=== PATIENT | male | born 1935 | race Caucasian/White ===

== ENCOUNTER 2016-11-12 14:48 | Outpatient (CLI) | payer MEDICARE, OTHER | END 2016-11-12 14:49 | disposition short-term general hospital (02) | LOC: EMS 14:48 | PROVIDERS: ATTEND Surgery | DX: R07.9 Chest pain, unspecified (principal) | CPT/HCPCS: A0425; A0427 ==

== ENCOUNTER 2018-05-20 15:14 | Outpatient (CLI) | payer MEDICARE, OTHER | END 2018-05-20 15:15 | disposition critical access hospital (66) | LOC: EMS 15:14 | PROVIDERS: ATTEND Surgery | DX: R51 Headache (principal); W18.30XA Fall on same level, unspecified, initial encounter; Y93.01 Activity, walking, marching and hiking; Y92.138 Other place on military base as the place of occurrence of the external cause | CPT/HCPCS: A0425; A0427 ==

== ENCOUNTER 2018-05-20 15:36 | Emergency (ER) | payer MEDICARE, OTHER ==
[2018-05-20 16:19] LABS: BASOPHILS # (AUTO) 0.1 10^3/uL (0.0-0.1); BASOPHILS % (AUTO) 1.1 %; EOSINOPHILS # (AUTO) 0.3 10^3/uL (0.0-0.7); EOSINOPHILS % (AUTO) 6.2 %; HGB - HEMOGLOBIN 11.3 g/dL (14.0-18.0); LYMPHOCYTES # (AUTO) 1.1 10^3/uL (1.5-3.5); LYMPHOCYTES % (AUTO) 20.5 %; MEAN CORPUSCULAR HEMOGLOBIN 32.1 pg (27.0-31.0); MEAN CORPUSCULAR HGB CONC 34.2 g/dL (32.0-36.0); MEAN PLATELET VOLUME 7.4 fL (7.4-11.4); MONOCYTES # (AUTO) 0.5 10^3/uL (0.0-1.0); NEUTROPHILS # (AUTO) 3.3 10^3/uL (1.5-6.6); NEUTROPHILS % (AUTO) 63.2 %; PLT - PLATELET COUNT 226 10^3/uL (130-450); RED BLOOD COUNT 3.53 10^6/uL (4.70-6.10); RED CELL DISTRIBUTION WIDTH 13.2 % (12.0-15.0); WHITE BLOOD COUNT 5.2 x10^3/uL (4.8-10.8)
--- NOTE | 2018-05-20 16:23 | ED Physician Documentation ---
History of Present Illness - Stated complaint Stated Complaint: FALL - Chief complaint Chief Complaint: Trauma Hd/Nk - History obtained from History obtained from: Patient, Family, EMS - History of Present Illness Timing: Today Pain level max: 0 Pain level now: 0 Improved by: nothing Worsened by: nothing - Additonal information Additional information: 82 year old male, with presumed dementia per , was walking behind his when she heard him fall. no LOC. has abrasions to the head. is on eliquis for afib. Patient cannot give a pain scale. Review of Systems Unable to obtain: Dementia Constitutional: denies: Fever GI: denies: Vomiting PD PAST MEDICAL HISTORY - Past Medical History Cardiovascular: Hypertension, High cholesterol, Coronary artery disease, Angina, [place], Atrial fibrillation, Other Respiratory: Asthma Endocrine/Autoimmune: Type 2 diabetes GI: None : None HEENT: Chronic vision loss Psych: None Musculoskeletal: Osteoarthritis, Gout Derm: Other - Past Surgical History Past Surgical History: Yes General: Appendectomy, Colonoscopy, Other Cardiovascular: Cardiac catheterization, Angioplasty HEENT: Other - Present Medications Home Medications: Ambulatory Orders Medication Instructions Recorded Confirmed Amiodarone HCl 150 mg PO DAILY 01/31/14 05/20/18 Aspirin [Aspir 81] 81 mg PO DAILY 01/31/14 05/20/18 Isosorbide Mononitrate [Isosorbide 30 mg PO DAILY 01/31/14 05/20/18 Mononitrate ER] Levothyroxine [Synthroid] 25 mcg PO QPM 01/31/14 05/20/18 Rosuvastatin Calcium [Crestor] 20 mg PO QPM 01/31/14 05/20/18 Apixaban [Eliquis] 2.5 mbq PO BID 05/20/18 05/20/18 - Allergies Allergies/Adverse Reactions: Allergies Allergy/AdvReac Type Severity Reaction Status Date / Time metformin Allergy Intermediate Unknown Verified 05/20/18 15:46 colchicine Allergy Unknown Verified 05/20/18 15:46 atorvastatin calcium * AdvReac Intermediate Cramps Verified 05/20/18 15:46 [From Lipitor] niacin AdvReac Intermediate Flushed Verified 05/20/18 15:46 - Social History Does the pt smoke?: No Smoking Status: Never smoker Does the pt drink ETOH?: No Does the pt have substance abuse?: No - Immunizations Immunizations are current?: Yes Immunizations: TDAP current <10years - POLST Patient has POLST: Yes PD ED PE NORMAL - Vitals Vital signs reviewed: Yes - General General: No acute distress, Other (alert, oriented to person and place) - HEENT HEENT: PERRL, EOMI, Ears normal, Moist mucous membranes, Pharynx benign, Other (abrasion to forehead) - Neck Neck: Supple, no meningeal sign - Cardiac Cardiac: RRR - Respiratory Respiratory: No respiratory distress, Clear bilaterally - Abdomen Abdomen: Soft, Non tender, Non distended - Back Back: Other (diffusely TTP over the spine. no stepoff or deformity.) - Derm Derm: Warm and dry - Extremities Extremities: Normal ROM s pain - Neuro Neuro: No motor deficit, No sensory deficit Eye Opening: Spontaneous Motor: Obeys Commands Verbal: Confused GCS Score: 14 Results - Vitals Vitals: Vital Signs - 24 hr 05/20/18 05/20/18 05/20/18 15:38 17:44 20:02 Temperature 36.4 C L Heart Rate 53 L 49 L 78 Respiratory 16 14 16 Rate Blood Pressure 115/110 H 148/63 H 132/78 H O2 Saturation 99 98 100 Oxygen O2 Source Room air - Labs Labs: Laboratory Tests 05/20/18 05/20/18 15:43 15:43 WBC 5.2 RBC 3.53 L Hgb 11.3 L Hct 33.2 L MCV 94.0 MCH 32.1 H MCHC 34.2 RDW 13.2 Plt Count 226 MPV 7.4 Neut # (Auto) 3.3 Lymph # (Auto) 1.1 L [place] # (Auto) 0.5 Eos # (Auto) 0.3 Baso # (Auto) 0.1 Absolute Nucleated RBC 0.00 Nucleated RBC % 0.0 Sodium 137 Potassium 4.7 Chloride 104 Carbon Dioxide 23 Anion Gap 10.0 BUN 39 H Creatinine 1.9 H Estimated GFR (MDRD) 34 L Glucose 109 H Calcium 9.4 Total Bilirubin 0.8 AST 28 ALT 16 Alkaline Phosphatase 79 Total Protein 7.3 Albumin 4.3 Globulin 3.0 Albumin/Globulin Ratio 1.4 Lipase 44 - Rads (name of study) head CT Radiology: Prelim report reviewed, EMP read contemporaneously, See rad report (No acute abnormality) c-spine CT Radiology: Prelim report reviewed, EMP read contemporaneously, See rad report (No acute abnormality) T spine xray Radiology: Prelim report reviewed, EMP read contemporaneously, See rad report (No acute abnormality) L spine xray Radiology: Prelim report reviewed, EMP read contemporaneously, See rad report (No acute abnormality) R knee xray Radiology: Prelim report reviewed, EMP read contemporaneously, See rad report (No acute abnormality) R shoulder xray Radiology: Prelim report reviewed, EMP read contemporaneously, See rad report (No acute abnormality) PD MEDICAL DECISION MAKING - ED course Complexity details: reviewed results, re-evaluated patient, considered differential, d/w patient, d/w family ED course: 82-year-old male presents to the emergency department with after a ground-level fall. He developed bruising on the right shoulder and pain to the right knee after the initial x-rays were taken, these x-rays are negative as well. Negative head CT. He is at his baseline mental status per the . He is well-appearing, nontoxic. Ambulating well. Declines pain medications here. Patient and family counseled regarding signs and symptoms for which I believe and urgent re-evaluation would be necessary. Patient with good understanding of and agreement to plan and is comfortable going home at this time This document was made in part using voice recognition software. While efforts are made to proofread this document, sound alike and grammatical errors may occur. Departure - Departure Disposition: 01 Home, Self Care Clinical Impression: Fall Qualifiers: Encounter type: initial encounter Qualified Code(s): W19.XXXA - Unspecified fall, initial encounter Head injury Qualifiers: Encounter type: initial encounter Qualified Code(s): S09.90XA - Unspecified injury of head, initial encounter Contusion of right shoulder Qualifiers: Encounter type: initial encounter Qualified Code(s): S40.011A - Contusion of right shoulder, initial encounter Abrasion of knee, right Qualifiers: Encounter type: initial encounter Qualified Code(s): S80.211A - Abrasion, right knee, initial encounter Condition: Good Instructions: ED Contusion Soft Tissue, ED Head Injury Closed Follow-Up: FREDERIC LOPEZ MD [Primary Care Provider] - Within 3 Days Comments: Return if he worsens. You may use Tylenol at home for pain. His x-rays and CT scans are without acute abnormality tonight Discharge Date/Time: 05/20/18 20:05
[2018-05-20 16:25] LABS: ALBUMIN 4.3 g/dL (3.2-5.5); ALBUMIN/GLOBULIN RATIO 1.4 (1.0-2.2); BILIRUBIN,TOTAL 0.8 mg/dL (0.2-1.0); CALCIUM 9.4 mg/dL (8.5-10.3); CREATININE 1.9 mg/dL (0.6-1.2); TOTAL PROTEIN 7.3 g/dL (6.7-8.2)
--- NOTE | 2018-05-20 17:10 | CT Report ---
Reason: head injury, pt on eliquis Procedure Date: 05/20/2018 Accession Number: [id number] / [id number] Procedure: CT - HEAD WO CPT Code: FULL RESULT: EXAM: CT HEAD EXAM DATE: 05/20/2018 04:35 PM. CLINICAL HISTORY: Head injury, pt on eliquis. COMPARISON: CT cervical spine performed concurrently.. TECHNIQUE: Multiaxial CT images were obtained from the foramen magnum to the vertex. Reformats: Sagittal and coronal. IV contrast: None. In accordance with CT protocol optimization, one or more of the following dose reduction techniques were utilized for this exam: automated exposure control, adjustment of mA and/or KV based on patient size, or use of iterative reconstructive technique. FINDINGS: Parenchyma: Mild patchy hypodensity in the bilateral cerebral periventricular greater than subcortical white matter consistent with chronic small vessel ischemic change. No high density lesions. No mass-effect. Thornton-white differentiation is intact. Extraaxial Spaces: Mild generalized sulcal prominence. No subdural or epidural collections identified. Ventricles: Mild generalized ventriculomegaly. Sinuses and Orbits: Bilateral cataract surgery. Small mucous retention cyst posteriorly in the left maxillary sinus antrum. Otherwise, the visualized paranasal sinuses are clear as are mastoids and middle ears. Bones: No evidence of fracture or calvarial defect. Other: No scalp contusion is identified. Moderate calcification in bilateral cavernous internal carotid arteries. IMPRESSION: 1. No intracranial hemorrhage. 2. Mild patchy chronic small vessel ischemic change in the bilateral cerebral white matter. No current CT evidence of acute CVA. 3. Mild diffuse cerebral volume loss. RADIA
--- NOTE | 2018-05-20 17:13 | CT Report ---
Reason: fall, neck injury Procedure Date: 05/20/2018 Accession Number: [id number] / [id number] Procedure: CT - CERVICAL SPINE WO CPT Code: FULL RESULT: EXAM: CT CERVICAL SPINE WITHOUT CONTRAST DATE: 05/20/2018 04:35 PM. HISTORY: Fall, neck injury. COMPARISONS: CT head performed concurrently C SPINE 02/07/2008 9:50 AM. MRI cervical spine 02/07/2008. TECHNIQUE: Thin-section axial images were acquired of the cervical spine without contrast. Post-processing: Coronal and sagittal reformats. Other: None. In accordance with CT protocol optimization, one or more of the following dose reduction techniques were utilized for this exam: automated exposure control, adjustment of mA and/or KV based on patient size, or use of iterative reconstructive technique. FINDINGS: Alignment: Minimal 2 mm spondylotic retrolisthesis C4 on C5. Bones: No fracture or focal bone lesion from the craniocervical junction through T2. Interspace Levels/Facets: Moderate osteoarthritis of the pre-dens interval. Partial bridging osteophyte formation anteriorly at C2-C3. Disk height loss and endplate osteophyte formation indicating degenerative disk disease which is moderate at C4-C5 through C6-C7. There is solid bony facet fusion right greater than left at C2-C3. There is moderate bilateral C3-C4 facet osteoarthritis. There is moderate right C7-T1 facet osteoarthritis. There is moderate bilateral C3-C4, mild right and moderate left C4-C5, moderate right and mild left C5-C6 bony foraminal stenosis. Musculature: Normal. No fatty atrophy. Other: The paravertebral and prevertebral soft tissues are unremarkable. Moderate calcified plaque at the bilateral carotid bifurcations. The lung apices are clear. IMPRESSION: 1. No fracture from the craniocervical junction through T2. 2. Moderate multilevel degenerative change as described above. RADIA
--- NOTE | 2018-05-20 17:21 | XRAY Report ---
Reason: fall, back pain Procedure Date: 05/20/2018 Accession Number: [id number] / [id number] Procedure: XR - Lumbar Spine 2 View CPT Code: FULL RESULT: EXAM: LUMBOSACRAL SPINE RADIOGRAPHY EXAM DATE: 05/20/2018 04:55 PM. CLINICAL HISTORY: Fall, back pain. COMPARISONS: THORACIC SPINE 2 VIEW 05/20/2018 4:35 PM. TECHNIQUE: 2 views. FINDINGS: Alignment: Minimal right convex lumbar spine curvature. No subluxation. Bones: Five [id number] lumbar vertebral bodies are present. No fractures or bone lesions. Disks: Mild anterior endplate osteophyte formation L2-L3 through L4-L5. Disk heights are maintained. Facets: No significant degenerative changes. Sacroiliac Joints: Unremarkable. Soft Tissues: Moderate aortoiliac atherosclerotic calcification. The visualized bowel gas pattern is normal. IMPRESSION: No fracture or subluxation is identified in the lumbar spine. RADIA
--- NOTE | 2018-05-20 17:21 | XRAY Report ---
Reason: fall, back pain Procedure Date: 05/20/2018 Accession Number: [id number] / [id number] Procedure: XR - Thoracic Spine 2 View CPT Code: FULL RESULT: EXAM: THORACIC SPINE RADIOGRAPHY EXAM DATE: 05/20/2018 04:35 PM. CLINICAL HISTORY: Fall, back pain. COMPARISON: CERVICAL SPINE W/O 05/20/2018 4:30 PM LUMBAR SPINE 2 VIEW 05/20/2018 4:35 PM. TECHNIQUE: 2 views. FINDINGS: Alignment: Subtle left convex lower thoracic spine curvature. No subluxation. Bones: No fractures or bone lesions. Disks: Mild anterior flowing osteophyte formation of the lower thoracic spine consistent with mild diffuse idiopathic skeletal hyperostosis. Disk heights are maintained. Soft Tissues: Moderate aortic arch calcification. The visualized lungs and cardiomediastinal silhouette are normal. IMPRESSION: No fracture or subluxation is identified in the thoracic spine. RADIA
--- NOTE | 2018-05-20 19:20 | XRAY Report ---
Reason: fall, R shoulder pain Procedure Date: 05/20/2018 Accession Number: [id number] / [id number] Procedure: XR - Shoulder 3 View RT CPT Code: FULL RESULT: EXAM: RIGHT SHOULDER RADIOGRAPHY EXAM DATE: 05/20/2018 06:43 PM. CLINICAL HISTORY: Fall, R shoulder pain. COMPARISON: XR CHEST PA AND LAT 09/09/2007 12:11 AM. TECHNIQUE: 3 views. FINDINGS: Bones: Normal. No fracture or bone lesion. Joints: The glenohumeral and acromioclavicular joints are normal. Soft tissues: The visualized hemithorax is unremarkable. No soft tissue swelling. IMPRESSION: Normal shoulder radiography. RADIA
--- NOTE | 2018-05-20 19:21 | XRAY Report ---
Reason: fall, R knee pain Procedure Date: 05/20/2018 Accession Number: [id number] / [id number] Procedure: XR - Knee 3 View RT CPT Code: FULL RESULT: EXAM: RIGHT KNEE RADIOGRAPHY EXAM DATE: 05/20/2018 06:43 PM. CLINICAL HISTORY: Fall, R knee pain. COMPARISON: None. TECHNIQUE: 3 views. FINDINGS: Bones: Normal. No fractures or bone lesions. Joints: Normal. No effusion. No subluxations. Soft Tissues: No juno soft tissue swelling. Mild atherosclerotic calcification. IMPRESSION: No fracture or joint effusion. RADIA
[2018-05-20 20:03] VITALS: BP 132/78
== END 2018-05-20 20:05 | disposition home or self-care (01) ==
LOC: EDUNIT# → ED 15:36
DX: S09.90XA Unspecified injury of head, initial encounter (principal); S00.81XA Abrasion of other part of head, initial encounter; S40.011A Contusion of right shoulder, initial encounter; S80.211A Abrasion, right knee, initial encounter; W18.30XA Fall on same level, unspecified, initial encounter; Y93.01 Activity, walking, marching and hiking; Y92.481 Parking lot as the place of occurrence of the external cause; I48.91 Unspecified atrial fibrillation; I48.92 Unspecified atrial flutter; I44.2 Atrioventricular block, complete; Z79.01 Long term (current) use of anticoagulants; E11.9 Type 2 diabetes mellitus without complications; I25.2 Old myocardial infarction; E78.00 Pure hypercholesterolemia, unspecified; F03.90 Unspecified dementia, unspecified severity, without behavioral disturbance, psychotic disturbance, mood disturbance, and anxiety; I25.10 Atherosclerotic heart disease of native coronary artery without angina pectoris; I10 Essential (primary) hypertension
CPT/HCPCS: 36415; 70450; 72070; 72100; 72125; 80053; 83690; 85025; 93005; 99284

== ENCOUNTER 2018-08-30 15:41 | Outpatient (CLI) | payer MEDICARE, OTHER | END 2018-08-30 15:42 | disposition critical access hospital (66) | LOC: EMS 15:41 | PROVIDERS: ATTEND Surgery | DX: R41.82 Altered mental status, unspecified (principal); R45.83 Excessive crying of child, adolescent or adult | CPT/HCPCS: A0425; A0429 ==

== ENCOUNTER 2018-08-30 15:44 | Emergency (ER) | payer MEDICARE, OTHER ==
--- NOTE | 2018-08-30 16:05 | ED Physician Documentation ---
PD HPI ALTERED MENTAL STATUS - Stated complaint Stated Complaint: GLF - Chief complaint Chief Complaint: Neuro - History obtained from History obtained from: Patient, Family ( via phone) - History of Present Illness Timing - onset: Today Timing - duration: Minutes Timing - details: Abrupt onset (patient slid out of his recliner and was confused, per couldn't follow commands, more confused than normal) Associated symptoms: No: Fever, Headache, Stiff neck, Dyspnea, Cough, NVD, Urinary sx, General weakness, Focal weakness, Seizure activity, Syncope Contributing factors: Anticoagulated. No: New medication, Recent injury, Substance abuse Basline status: Ambulatory, Other (normally ambulates without a walker, and follows commands, feeds himself). 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 (none) Similar symptoms before: Diagnosis (dementia but this is worse than normal) Recently seen: Not recently seen - Treatment prior to arrival Treatment prior to arrival: none Review of Systems Unable to obtain: Dementia Constitutional: denies: Fever Cardiac: denies: Chest pain / pressure Respiratory: denies: Dyspnea GI: denies: Abdominal Pain Musculoskeletal: denies: Neck pain, Back pain Neurologic: reports: Confused PD PAST MEDICAL HISTORY - Past Medical History Past Medical History: Yes Cardiovascular: Hypertension, High cholesterol, Coronary artery disease, Angina, [place], Atrial fibrillation, Other Respiratory: Asthma Endocrine/Autoimmune: Type 2 diabetes GI: None : None HEENT: Chronic vision loss Psych: None Musculoskeletal: Osteoarthritis, Gout Derm: Other - Past Surgical History Past Surgical History: Yes General: Appendectomy, Colonoscopy, Other Cardiovascular: Cardiac catheterization, Angioplasty HEENT: Other - Present Medications Home Medications: Ambulatory Orders Medication Instructions Recorded Confirmed Aspirin [Aspir 81] 81 mg PO DAILY 01/31/14 05/20/18 Isosorbide Mononitrate [Isosorbide 30 mg PO DAILY 01/31/14 05/20/18 Mononitrate ER] Levothyroxine [Synthroid] 25 mcg PO QPM 01/31/14 05/20/18 RX: Amiodarone HCl 150 mg PO DAILY 01/31/14 05/20/18 Rosuvastatin Calcium [Crestor] 20 mg PO QPM 01/31/14 05/20/18 Apixaban [Eliquis] 2.5 mbq PO BID 05/20/18 05/20/18 - Allergies Allergies/Adverse Reactions: Allergies Allergy/AdvReac Type Severity Reaction Status Date / Time metformin Allergy Intermediate Unknown Verified 05/20/18 15:46 colchicine Allergy Unknown Verified 05/20/18 15:46 atorvastatin calcium * AdvReac Intermediate Cramps Verified 05/20/18 15:46 [From Lipitor] niacin AdvReac Intermediate Flushed Verified 05/20/18 15:46 - Social History Does the pt smoke?: No Smoking Status: Never smoker Does the pt drink ETOH?: No Does the pt have substance abuse?: No - Immunizations Immunizations are current?: Yes Immunizations: TDAP current <10years - POLST Patient has POLST: Yes PD ED PE NORMAL - Vitals Vital signs reviewed: Yes (sinus bradycardia ) - General General: No acute distress, Other (awake alert and oriented to self) - HEENT HEENT: Atraumatic, PERRL, EOMI, Ears normal, Moist mucous membranes, Pharynx benign - Neck Neck: Supple, no meningeal sign, No bony TTP, No JVD - Cardiac Cardiac: RRR, No murmur, No gallop, No rub - Respiratory Respiratory: No respiratory distress, Clear bilaterally - Abdomen Abdomen: Soft, Non tender, Non distended - Male Male : Deferred - Rectal Rectal: Deferred - Back Back: No spinal TTP - Derm Derm: Normal color, Warm and dry, No rash - Extremities Extremities: No deformity, No tenderness to palpate, Normal ROM s pain, No edema - 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, No motor deficit, No sensory deficit, Normal speech, Other (oriented to self ) Eye Opening: Spontaneous Motor: Obeys Commands (obeys most commands) Verbal: Confused GCS Score: 14 - Psych Psych: Normal mood, Normal affect Results - Vitals Vitals: Oxygen O2 Source Room air - EKG (time done) No standard instances Rate: Rate (enter#) (45), [place] Rhythm: Sinus bradycardia [place]: Normal Intervals: Normal NE, QRS normal, Other (normal QT) Ischemia: Normal ST segments Other comments: Other comments (no STEMI, sinus bradycardia ) Computer interpretation: Agree with computer - Labs Labs: Laboratory Tests 08/30/18 08/30/18 08/30/18 16:03 16:03 17:01 WBC 5.0 RBC 3.52 L Hgb 11.1 L Hct 33.4 L MCV 95.0 H MCH 31.5 H MCHC 33.2 RDW 13.9 Plt Count 176 MPV 7.1 L Neut # (Auto) 3.1 Lymph # (Auto) 0.9 L [place] # (Auto) 0.5 Eos # (Auto) 0.4 Baso # (Auto) 0.0 Absolute Nucleated RBC 0.00 Nucleated RBC % 0.0 Sodium 140 Potassium 4.4 Chloride 107 Carbon Dioxide 23 Anion Gap 10.0 BUN 39 H Creatinine 1.8 H Estimated GFR (MDRD) 36 L Glucose 104 H Calcium 9.2 Urine Color YELLOW Urine Clarity CLEAR Urine pH 5.5 Ur Specific [place] 1.010 Urine Protein NEGATIVE Urine Glucose (UA) NEGATIVE Urine Ketones NEGATIVE Urine Occult Blood NEGATIVE Urine Nitrite NEGATIVE Urine Bilirubin NEGATIVE Urine Urobilinogen 0.2 (NORMAL) Ur Leukocyte Esterase NEGATIVE Ur Microscopic Review NOT INDICATED Urine Culture Comments NOT INDICATED kidney function at baseline. UA negative. CBC stable - Rads (name of study) No standard instances Radiology: Final report received (CT head negative for acute injury or disease) PD MEDICAL DECISION MAKING - ED course Complexity details: re-evaluated patient, considered differential, d/w patient, d/w family ED course: ddx- head injury, stroke, uti, electrolyte abnormality, dehydration, infection, worsening dementia 82 y/o M slid out of his chair today and briefly seemed more confused than normal. Now returned to baseline, more with it. No significant injuries noted on exam Negative head CT. Negative labs and UA. Pt appears to be close to baseline per family . No focal abnormalities here on exam or labs. Stable for outpt f/u. Departure - Departure Disposition: 01 Home, Self Care Clinical Impression: Dementia Qualifiers: Dementia type: unspecified type Dementia behavioral disturbance: without behavioral disturbance Qualified Code(s): F03.90 - Unspecified dementia without behavioral disturbance Fall Qualifiers: Encounter type: initial encounter Qualified Code(s): W19.XXXA - Unspecified fall, initial encounter Condition: Stable Record reviewed to determine appropriate education?: Yes Instructions: ED Dementia Caregiver Support Follow-Up: FREDERIC LOPEZ MD [Primary Care Provider] - Comments: Your labs and CT scan today were normal. You had no significant injuries from your fall. You should follow up with your doctor regarding further needs for your dementia and consider some additional assistance. Discharge Date/Time: 08/30/18 17:45
[2018-08-30 16:24] LABS: BASOPHILS % (AUTO) 0.5 %; EOSINOPHILS # (AUTO) 0.4 10^3/uL (0.0-0.7); HGB - HEMOGLOBIN 11.1 g/dL (14.0-18.0); LYMPHOCYTES # (AUTO) 0.9 10^3/uL (1.5-3.5); LYMPHOCYTES % (AUTO) 18.4 %; MEAN CORPUSCULAR HEMOGLOBIN 31.5 pg (27.0-31.0); MEAN CORPUSCULAR HGB CONC 33.2 g/dL (32.0-36.0); MEAN PLATELET VOLUME 7.1 fL (7.4-11.4); MONOCYTES # (AUTO) 0.5 10^3/uL (0.0-1.0); MONOCYTES % (AUTO) 10.4 %; NEUTROPHILS # (AUTO) 3.1 10^3/uL (1.5-6.6); NEUTROPHILS % (AUTO) 61.7 %; PLT - PLATELET COUNT 176 10^3/uL (130-450); RED BLOOD COUNT 3.52 10^6/uL (4.70-6.10); RED CELL DISTRIBUTION WIDTH 13.9 % (12.0-15.0)
[2018-08-30 16:39] LABS: CALCIUM 9.2 mg/dL (8.5-10.3); CREATININE 1.8 mg/dL (0.6-1.2)
[2018-08-30] MEDS ORDERED: SODIUM CHLORIDE 0.9% 1,000 ML IV ONE (16:43)
--- NOTE | 2018-08-30 16:44 | CT Report ---
Reason: confusion, fall on eloquis Procedure Date: 08/30/2018 Accession Number: [id number] / [id number] Procedure: CT - HEAD WO CPT Code: FULL RESULT: EXAM: CT HEAD EXAM DATE: 08/30/2018 04:34 PM. CLINICAL HISTORY: Confusion, fall on eloquis. COMPARISON: HEAD W/O 05/20/2018 4:30 PM. TECHNIQUE: Multiaxial CT images were obtained from the foramen magnum to the vertex. Reformats: Sagittal and coronal. IV contrast: None. In accordance with CT protocol optimization, one or more of the following dose reduction techniques were utilized for this exam: automated exposure control, adjustment of mA and/or KV based on patient size, or use of iterative reconstructive technique. FINDINGS: Parenchyma: No intraparenchymal hemorrhage. No evidence of mass, midline shift, or CT findings of infarction. Thornton-white differentiation is distinct. Extraaxial Spaces: Normal for age. No subdural or epidural collections identified. Ventricles: Normal in size and position. Sinuses and Orbits: Mucosal thickening is seen involving left maxillary sinus. Rest of the imaged paranasal sinuses, orbits, and mastoids show no significant abnormality. Bones: No evidence of fracture or calvarial defect. Other: None. IMPRESSION: No acute traumatic intracranial abnormality. Mucosal thickening in left maxillary sinus. RADIA
[2018-08-30 16:58] VITALS: BP 128/90
[2018-08-30 17:05] LABS: BILIRUBIN,URINE NEGATIVE (NEGATIVE); GLUCOSE, URINE (UA) NEGATIVE (NEGATIVE); KETONES,URINE (UA) NEGATIVE (NEGATIVE); LEUKOCYTE ESTERASE, URINE NEGATIVE (NEGATIVE); NITRITE,URINE NEGATIVE (NEGATIVE); OCCULT BLOOD,URINE NEGATIVE (NEGATIVE); PH,URINE 5.5 PH (5.0-7.5); PROTEIN,URINE NEGATIVE (NEGATIVE); UROBILINOGEN,URINE 0.2 (NORMAL) E.U./dL (NORMAL)
[2018-08-30 17:06] LABS: CLARITY,URINE CLEAR (CLEAR)
== END 2018-08-30 17:45 | disposition home or self-care (01) ==
LOC: EDUNIT# → ED 15:44
DX: F03.90 Unspecified dementia, unspecified severity, without behavioral disturbance, psychotic disturbance, mood disturbance, and anxiety (principal); I10 Essential (primary) hypertension; I48.91 Unspecified atrial fibrillation; I25.119 Atherosclerotic heart disease of native coronary artery with unspecified angina pectoris; E11.9 Type 2 diabetes mellitus without complications; J45.909 Unspecified asthma, uncomplicated; H54.7 Unspecified visual loss; Z79.01 Long term (current) use of anticoagulants; Z79.82 Long term (current) use of aspirin; I25.2 Old myocardial infarction; Z98.61 Coronary angioplasty status
CPT/HCPCS: 36415; 70450; 80048; 81001; 81003; 85025; 87086; 93005; 99283

== ENCOUNTER 2018-11-04 18:52 | Outpatient (CLI) | payer MEDICARE, OTHER | END 2018-11-04 18:53 | disposition critical access hospital (66) | LOC: EMS 18:52 | PROVIDERS: ATTEND Surgery | DX: R07.9 Chest pain, unspecified (principal) | CPT/HCPCS: A0425; A0427 ==

== ENCOUNTER 2018-11-04 19:14 | Emergency (ER) | payer MEDICARE, OTHER ==
[2018-11-04 20:30] LABS: BASOPHILS % (AUTO) 0.8 %; EOSINOPHILS # (AUTO) 0.2 10^3/uL (0.0-0.7); EOSINOPHILS % (AUTO) 6.3 %; HGB - HEMOGLOBIN 10.9 g/dL (14.0-18.0); LYMPHOCYTES # (AUTO) 0.9 10^3/uL (1.5-3.5); LYMPHOCYTES % (AUTO) 23.9 %; MEAN CORPUSCULAR HEMOGLOBIN 32.4 pg (27.0-31.0); MEAN CORPUSCULAR HGB CONC 32.8 g/dL (32.0-36.0); MEAN CORPUSCULAR VOLUME 98.8 fL (80.0-94.0); MEAN PLATELET VOLUME 9.1 fL (7.4-11.4); MONOCYTES # (AUTO) 0.3 10^3/uL (0.0-1.0); MONOCYTES % (AUTO) 8.7 %; NEUTROPHILS # (AUTO) 2.3 10^3/uL (1.5-6.6); PLT - PLATELET COUNT 154 10^3/uL (130-450); RED BLOOD COUNT 3.36 10^6/uL (4.70-6.10); RED CELL DISTRIBUTION WIDTH 12.7 % (12.0-15.0); WHITE BLOOD COUNT 3.8 x10^3/uL (4.8-10.8)
[2018-11-04 20:41] LABS: ALBUMIN/GLOBULIN RATIO 1.5 (1.0-2.2); BILIRUBIN,TOTAL 0.2 mg/dL (0.2-1.0); CALCIUM 9.4 mg/dL (8.5-10.3); TOTAL PROTEIN 6.7 g/dL (6.7-8.2)
--- NOTE | 2018-11-04 21:22 | ED Physician Documentation ---
History of Present Illness - Stated complaint Stated Complaint: ABD Px - Chief complaint Chief Complaint: Abd Pain - Additonal information Additional information: This is an 83-year-old male with a history of dementia, who presents with a rec urrence of his intermittent abdominal pain. His at bedside states that he has had intermittent episodes of abdominal pain for over a year. These will come on strongly and will be located in the right upper quadrant or the left upper quadrant. The cause him to double over, and he usually is brought by ambulance to the emergency department. His work-ups have been unrevealing. He did get a cholecystectomy, this is not seem to help. He was started on ranitidine, and this also has not helped. He has been evaluated by his loading checker and cardiac cause has been ruled out. He developed the current episode today while his was in a store, and when she came outside he was being loaded up into an ambulance. He states that the pain lasted several minutes, and then subsided completely. Currently has no pain whatsoever. The pain was located near the epigastric or right upper quadrant region. He denies any shortness of breath, no dysuria, at this time he has no complaints whatsoev er. Review of Systems Constitutional: denies: Fever Eyes: denies: Loss of vision Cardiac: denies: Chest pain / pressure Respiratory: denies: Dyspnea GI: reports: Abdominal Pain. denies: Vomiting Neurologic: denies: Generalized weakness PD PAST MEDICAL HISTORY - Past Medical History Cardiovascular: Hypertension, High cholesterol, Coronary artery disease, Angina, [place], Atrial fibrillation, Other Respiratory: Asthma Endocrine/Autoimmune: Type 2 diabetes GI: None : None HEENT: Chronic vision loss Psych: None Musculoskeletal: Osteoarthritis, Gout Derm: Other - Past Surgical History Past Surgical History: Yes General: Appendectomy, Colonoscopy, Other Cardiovascular: Cardiac catheterization, Angioplasty HEENT: Other - Present Medications Home Medications: Ambulatory Orders Medication Instructions Recorded Confirmed Amiodarone HCl 150 mg PO DAILY 01/31/14 05/20/18 Aspirin [Aspir 81] 81 mg PO DAILY 01/31/14 05/20/18 Isosorbide Mononitrate [Isosorbide 30 mg PO DAILY 01/31/14 05/20/18 Mononitrate ER] Levothyroxine [Synthroid] 25 mcg PO QPM 01/31/14 05/20/18 Rosuvastatin Calcium [Crestor] 20 mg PO QPM 01/31/14 05/20/18 Apixaban [Eliquis] 2.5 mbq PO BID 05/20/18 05/20/18 - Allergies Allergies/Adverse Reactions: Allergies Allergy/AdvReac Type Severity Reaction Status Date / Time metformin Allergy Intermediate Unknown Verified 05/20/18 15:46 colchicine Allergy Unknown Verified 05/20/18 15:46 atorvastatin calcium * AdvReac Intermediate Cramps Verified 05/20/18 15:46 [From Lipitor] niacin AdvReac Intermediate Flushed Verified 05/20/18 15:46 - Social History Does the pt smoke?: No Smoking Status: Never smoker Does the pt drink ETOH?: No Does the pt have substance abuse?: No - Immunizations Immunizations are current?: Yes Immunizations: TDAP current <10years - POLST Patient has POLST: Yes PD ED PE NORMAL - Vitals Vital signs reviewed: Yes - General General: No acute distress, Other (Tangential speech, apparent poor memory) - HEENT HEENT: PERRL - Neck Neck: Supple, no meningeal sign - Cardiac Cardiac: RRR, No murmur - Respiratory Respiratory: Clear bilaterally - Abdomen Abdomen: Normal bowel sounds, Soft, Non tender, Non distended - Derm Derm: Warm and dry - Extremities Extremities: No deformity - Neuro Neuro: brand executive 2-12 intact, No motor deficit, No sensory deficit, Other (Answers questions and has normal superficial conversation, becomes confused and tangential when discussing matters in depth) - Psych Psych: Normal mood, Normal affect Results - Vitals Vitals: Oxygen O2 Source Room air - EKG (time done) 19:22 Other comments: Other comments (Rate 50, rhythm sinus bradycardia, No ST depression or elevation, no abnormal T wave inversions. QTC 458) - Labs Labs: Laboratory Tests 11/04/18 11/04/18 11/04/18 20:23 20:23 20:23 WBC 3.8 L RBC 3.36 L Hgb 10.9 L Hct 33.2 L MCV 98.8 H MCH 32.4 H MCHC 32.8 RDW 12.7 Plt Count 154 MPV 9.1 Neut # (Auto) 2.3 Lymph # (Auto) 0.9 L [place] # (Auto) 0.3 Eos # (Auto) 0.2 Baso # (Auto) 0.0 Absolute Nucleated RBC 0.00 Nucleated RBC % 0.0 Sodium 144 Potassium 4.5 Chloride 109 Carbon Dioxide 26 Anion Gap 9.0 BUN 41 H Creatinine 2.0 H Estimated GFR (MDRD) 32 L Glucose 100 Calcium 9.4 Total Bilirubin 0.2 AST 15 ALT 11 Alkaline Phosphatase 51 Troponin I High Sens 10.4 Total Protein 6.7 Albumin 4.0 Globulin 2.7 Albumin/Globulin Ratio 1.5 Lipase 83 H PD MEDICAL DECISION MAKING - ED course Complexity details: considered differential (Appendicitis, intestinal cramping, constipation, nephrolithiasis, ACS, gastroenteritis, musculoskeletal pain, abdominal migraine.) ED course: Pt presents with a recurrence of intermittent abdominal pain that has occured many times in the past with an unclear etiology. He is now completely symptom free and well-appearing. EKG shows no signs of ischemia or dysrhythmia, he does have mild bradycardia which is his baseline, and he has no lightheadedness, syncope, or chest pain. Labs are obtained and show no change from baseline - he does have a chronic anemia and creatinine elevation. He has mild lipase elevation but no curent pain or tenderness, incompatible with acute pancreatitis. His troponin is negative. On re-evaluation he continues to have no symptoms and a benign abdominal exam. Given he has had an extensive work up for these episodes, which recur every several months, and that he now feels completely normal, I discussed further work up with patient and his family and using shared decision making we will defer given it is likely to be of limited utility and that he appears safe for outpatient follow up. I discussed return precautions and PCP follow up. Pt and his family agree and he was discharged home. Departure - Departure Disposition: 01 Home, Self Care Clinical Impression: Abdominal pain Qualifiers: Abdominal location: upper abdomen, unspecified Qualified Code(s): R10.10 - Upper abdominal pain, unspecified Condition: Stable Instructions: ED Abdominal Pain Unkn Cause Follow-Up: Your,PCP [Other] (For follow up on symptoms) Comments: You were seen today for an episode of abdominal pain. Your pain is now resolved. Your labs look similar to past values, you do have abnormal kidney function (creatinin 2.0), and an anemia. Please follow-up with your primary care provider on these issues. We do not see an obvious cause of your pain, But if you develop any new or worsening symptoms or if your pain recurs and persists, please return to the emergency department Discharge Date/Time: 11/04/18 21:28
[2018-11-04 21:24] VITALS: BP 157/62
== END 2018-11-04 21:28 | disposition home or self-care (01) ==
LOC: EDUNIT# → ED 19:14
DX: R10.10 Upper abdominal pain, unspecified (principal); R74.8 Abnormal levels of other serum enzymes; R79.89 Other specified abnormal findings of blood chemistry; D53.9 Nutritional anemia, unspecified; R00.1 Bradycardia, unspecified; I10 Essential (primary) hypertension; E11.9 Type 2 diabetes mellitus without complications; Z79.01 Long term (current) use of anticoagulants; Z79.82 Long term (current) use of aspirin; F03.90 Unspecified dementia, unspecified severity, without behavioral disturbance, psychotic disturbance, mood disturbance, and anxiety; Z90.49 Acquired absence of other specified parts of digestive tract
CPT/HCPCS: 36415; 80053; 83690; 84484; 85025; 93005; 99283; 99284

== ENCOUNTER 2019-02-11 11:49 | Outpatient (CLI) | payer MEDICARE, OTHER | END 2019-02-11 11:50 | disposition critical access hospital (66) | LOC: EMS 11:49 | PROVIDERS: ATTEND Surgery | DX: R11.10 Vomiting, unspecified (principal) | CPT/HCPCS: A0425; A0429 ==

== ENCOUNTER 2019-02-11 12:13 | Inpatient (IN) | payer MEDICARE, OTHER ==
--- NOTE | 2019-02-11 12:37 | ED Physician Documentation ---
PD HPI ABD PAIN - Stated complaint Stated Complaint: VOMITING - Chief complaint Chief Complaint: Abd Pain - History obtained from History obtained from: Patient, EMS - History of Present Illness Timing - onset: Yesterday (83-year-old gentleman presents by ambulance, he is an unhelpful historian because of dementia. He does not really know why he is here. He denies any pain. He remembers that he was a 30-year of the [employer]. Does not know how old he is. Does not know where he lives. Reportedly had some burping yesterday and today had dark vomitus.) Review of Systems Unable to obtain: Confused, Dementia PD PAST MEDICAL HISTORY - Past Medical History Cardiovascular: Hypertension, High cholesterol, Coronary artery disease, Angina, [place], Atrial fibrillation, Other Respiratory: Asthma Endocrine/Autoimmune: Type 2 diabetes GI: None : None HEENT: Chronic vision loss Psych: None Musculoskeletal: Osteoarthritis, Gout Derm: Other - Past Surgical History Past Surgical History: Yes General: Appendectomy, Colonoscopy, Other Cardiovascular: Cardiac catheterization, Angioplasty HEENT: Other - Present Medications Home Medications: Ambulatory Orders Medication Instructions Recorded Confirmed Amiodarone HCl 100 mg PO DAILY 01/31/14 05/20/18 Aspirin [Aspir 81] 81 mg PO DAILY 01/31/14 05/20/18 Isosorbide Mononitrate [Isosorbide 60 mg PO DAILY 01/31/14 05/20/18 Mononitrate ER] Levothyroxine [Synthroid] 50 mcg PO QPM 01/31/14 05/20/18 Rosuvastatin Calcium [Crestor] 10 mg PO QPM 01/31/14 05/20/18 Apixaban [Eliquis] 2.5 mbq PO BID 05/20/18 05/20/18 - Allergies Allergies/Adverse Reactions: Allergies Allergy/AdvReac Type Severity Reaction Status Date / Time metformin Allergy Intermediate Unknown Verified 05/20/18 15:46 colchicine Allergy Unknown Verified 05/20/18 15:46 atorvastatin calcium * AdvReac Intermediate Cramps Verified 05/20/18 15:46 [From Lipitor] niacin AdvReac Intermediate Flushed Verified 05/20/18 15:46 - Social History Does the pt smoke?: No Smoking Status: Never smoker Does the pt drink ETOH?: No Does the pt have substance abuse?: No - Immunizations Immunizations are current?: Yes Immunizations: TDAP current <10years - POLST Patient has POLST: Yes PD ED PE NORMAL - Vitals Vital signs reviewed: Yes - General General: Other (He is alert and oriented to person but not place or time he is in no distress) - HEENT HEENT: PERRL, EOMI - Neck Neck: Supple, no meningeal sign, No bony TTP - Cardiac Cardiac: RRR, Other (3 out of 6 decrescendo systolic murmur) - Respiratory Respiratory: No respiratory distress, Clear bilaterally - Abdomen Abdomen: Soft, Non tender - Rectal Rectal: Other (He is incontinent of dark stool, this was sent to the lab for guaiac evaluation.) - Back Back: No CVA TTP, No spinal TTP - Extremities Extremities: No edema, No calf tenderness / cord - Neuro Neuro: No motor deficit, No sensory deficit Results - Vitals Vitals: Vital Signs - 24 hr 02/11/19 02/11/19 12:14 12:33 Temperature 37.2 C Heart Rate 54 L 52 L Respiratory 18 18 Rate Blood Pressure 159/72 H 140/69 H O2 Saturation 100 99 Oxygen O2 Source Room air - Labs Labs: Microbiology 02/11/19 12:30 Occult Blood - Final Stool Laboratory Tests 02/11/19 02/11/19 02/11/19 12:50 12:50 12:50 WBC 7.1 RBC 3.23 L Hgb 10.3 L Hct 30.0 L MCV 92.9 MCH 31.9 H MCHC 34.3 RDW 11.5 L Plt Count 244 MPV 8.9 Neut # (Auto) 6.0 Lymph # (Auto) 0.5 L Payne # (Auto) 0.5 Eos # (Auto) 0.1 Baso # (Auto) 0.0 Absolute Nucleated RBC 0.00 Nucleated RBC % 0.0 PT 13.9 H INR 1.2 Sodium 122 L Potassium 4.1 Chloride 87 L Carbon Dioxide 26 Anion Gap 9.0 BUN 26 H Creatinine 1.5 H Estimated GFR (MDRD) 45 L Glucose 116 H Calcium 8.5 Total Bilirubin 0.7 AST 17 ALT 11 Alkaline Phosphatase 53 Total Protein 6.4 L Albumin 3.6 Globulin 2.8 Albumin/Globulin Ratio 1.3 Lipase 34 PD MEDICAL DECISION MAKING - ED course ED course: This is an 83-year-old gentleman who is anticoagulated on Eliquis who presents with an apparent upper GI bleed. There is no evidence of hepatic dysfunction. No record in the chart of alcohol abuse. He is an unreliable historian. I tried calling the at home, there was no answer, I left a voicemail. His hemodynamics are good, his H&H is only dropped from priors by just a little bit. He is given IV Protonix. He also has a pretty significant hyponatremia which is new Spoke with Dr. Carty for admission at [address] Brooks, the surgeon for consultation at 1332. Departure - Departure Disposition: 66 [facility] DC/Xfer Clinical Impression: Upper GI bleed, Adequate anticoagulation on anticoagulant therapy, Dementia, Hyponatremia Condition: Stable
[2019-02-11] MEDS ORDERED: PANTOPRAZOLE 40 MG VIAL IVP STA (12:48)
[2019-02-11 12:53] LABS: BASOPHILS % (AUTO) 0.1 %; EOSINOPHILS # (AUTO) 0.1 10^3/uL (0.0-0.7); EOSINOPHILS % (AUTO) 0.9 %; HGB - HEMOGLOBIN 10.3 g/dL (14.0-18.0); LYMPHOCYTES # (AUTO) 0.5 10^3/uL (1.5-3.5); LYMPHOCYTES % (AUTO) 7.1 %; MEAN CORPUSCULAR HEMOGLOBIN 31.9 pg (27.0-31.0); MEAN CORPUSCULAR HGB CONC 34.3 g/dL (32.0-36.0); MEAN CORPUSCULAR VOLUME 92.9 fL (80.0-94.0); MEAN PLATELET VOLUME 8.9 fL (7.4-11.4); MONOCYTES # (AUTO) 0.5 10^3/uL (0.0-1.0); MONOCYTES % (AUTO) 6.7 %; NEUTROPHILS % (AUTO) 84.9 %; PLT - PLATELET COUNT 244 10^3/uL (130-450); RED BLOOD COUNT 3.23 10^6/uL (4.70-6.10); RED CELL DISTRIBUTION WIDTH 11.5 % (12.0-15.0); WHITE BLOOD COUNT 7.1 x10^3/uL (4.8-10.8)
[2019-02-11 13:06] LABS: ALBUMIN 3.6 g/dL (3.2-5.5); ALBUMIN/GLOBULIN RATIO 1.3 (1.0-2.2); BILIRUBIN,TOTAL 0.7 mg/dL (0.2-1.0); CALCIUM 8.5 mg/dL (8.5-10.3); CREATININE 1.5 mg/dL (0.6-1.2); TOTAL PROTEIN 6.4 g/dL (6.7-8.2)
[2019-02-11 13:11] LABS: INR 1.2 (0.8-1.2); PT - PROTHROMBIN TIME 13.9 secs (9.9-12.6)
[2019-02-11] MEDS ORDERED: SODIUM CHLORIDE 0.9% 1,000 ML IV ONE (13:12)
[2019-02-11] MEDS ORDERED: PROCHLORPERAZINE 10 MG/2 ML VIAL IVP PRN (15:39)
[2019-02-11] MEDS ORDERED: ACETAMINOPHEN 325 MG TABLET PO PRN (15:39)
[2019-02-11] MEDS: DEXTROSE 5%-0.9% NACL 1,000 ML IV SCH (17:42)
[2019-02-11] MEDS: SODIUM CHLORIDE FLUSH 0.9% 10 ML SYRINGE IVP SCH (17:43)
[2019-02-11] MEDS: ceFAZolin 1 GM in SODIUM CHLORIDE 0.9% MINIBAG 100 ML IV SCH (19:31)
--- NOTE | 2019-02-11 20:35 | HISTORY & PHYSICAL EXAMINATION ---
DATE OF SERVICE: 02/11/2019 Physician: Evy Carty MD HISTORY OF PRESENT ILLNESS: This is an 83-year-old white male with a history of dementia, presumed atrial fibrillation since he is on amiodarone and Eliquis, CKD, hypothyroidism and is being treated for a toe infection with cephalosporin. The patient had excessive burping yesterday and then today vomited blood and the also noticed black stool. She called an ambulance. They brought him to the ER and the history was not available until she arrived hours later. The patient denies any complaints currently. The describes that he is getting more forgetful, can do ADLs; she is able to leave him at home alone for short periods of time. She is the caregiver, is responsible for his medications and his diet. PAST MEDICAL HISTORY: Dementia, CKD, hypothyroidism, toe infection. ALLERGIES: METFORMIN, COLCHICINE, LIPITOR, NIACIN. MEDICATIONS: 1. Restore Plus eyedrops. 2. Cephalexin 500 mg q.i.d. 3. Tums b.i.d. 4. Baby aspirin daily. 5. Crestor 10 mg every night. 6. Levothyroxine 50 mcg every night. 7. Eliquis 2.5 mg b.i.d. 8. Amiodarone 100 mg daily. SOCIAL HISTORY: The patient no longer smokes, smoked when he was young, drinks no alcohol. No illicit drug use. He lives with the , he no longer drives. REVIEW OF SYSTEMS: A comprehensive review of systems was performed by talking to the , the pertinent positives are listed, the rest are negative. PHYSICAL EXAMINATION: GENERAL: White male who is in no distress, sitting in bed. VITAL SIGNS: Blood pressure 140/70, heart rate 50-55 and regular. He is afebrile. Room air saturation 98%. HEENT: Unremarkable. NECK: No JVD or carotid bruits. CHEST: Clear. HEART: Normal heart sounds, no murmurs. ABDOMEN: Soft, nondistended, nontender. Normal bowel sounds. No organomegaly. EXTREMITIES: No clubbing, cyanosis or edema. The right third toe has minimal redness and was marked; there is no puffiness. NEUROLOGIC: Poor memory, otherwise grossly intact. LABORATORY DATA: Sodium 122, potassium 4.1, BUN 26, creatinine 1.5. His usual creatinine runs 1.5-2.0. Normal liver tests. INR 1.2; however, it is unreliable in a patient on Xarelto or Eliquis. White blood count 7.1, hemoglobin 10.3, MCV 92, RDW 11, platelet count 244. No EKG was done. No chest x-ray was done. IMPRESSION/DIAGNOSES: 1. Upper gastrointestinal bleed with both vomiting blood and melena. 2. Anticoagulated. 3. Hyponatremia. 4. Dementia. 5. Chronic kidney disease. 6. Hypothyroidism. 7. Toe infection. PLAN: Admit the patient on telemetry. Stop his anticoagulation and his daily aspirin. Continue with his amiodarone for maintaining sinus rhythm. Continue with his thyroid medication and will change his oral antibiotic to IV form in order to minimize p.o. intake. Start clear liquids then n.p.o. after midnite and a General Surgery consult for an EGD. Follow his hemoglobin and hematocrit. I discussed whether the would consent to transfusion if there should be a significant drop in hemoglobin and she is not sure. CODE STATUS: DNR. DEEP VENOUS THROMBOSIS PROPHYLAXIS: SCDs. ATTESTATION: The patient is expected to be discharged or transferred to another facility within 96 hours: Yes. TD: 02/11/2019 20:03 IVAN
[2019-02-11] MEDS: FAMOTIDINE 20 MG/2 ML VIAL IVP SCH (20:52)
[2019-02-11] MEDS: LEVOTHYROXINE 25 MCG TABLET PO SCH (20:52)
[2019-02-11] MEDS: SODIUM CHLORIDE FLUSH 0.9% 10 ML SYRINGE IVP PRN (20:53)
[2019-02-12] MEDS: SODIUM CHLORIDE FLUSH 0.9% 10 ML SYRINGE IVP SCH ×3 (00:39→17:27)
[2019-02-12] MEDS: ceFAZolin 1 GM in SODIUM CHLORIDE 0.9% MINIBAG 100 ML IV SCH ×3 (02:49→21:50)
[2019-02-12] MEDS: DEXTROSE 5%-0.9% NACL 1,000 ML IV SCH ×2 (04:38→10:10)
[2019-02-12 06:22] LABS: BASOPHILS % (AUTO) 0.3 %; EOSINOPHILS # (AUTO) 0.1 10^3/uL (0.0-0.7); EOSINOPHILS % (AUTO) 1.5 %; HGB - HEMOGLOBIN 10.6 g/dL (14.0-18.0); LYMPHOCYTES % (AUTO) 13.7 %; MEAN CORPUSCULAR HEMOGLOBIN 31.8 pg (27.0-31.0); MEAN CORPUSCULAR HGB CONC 34.8 g/dL (32.0-36.0); MEAN CORPUSCULAR VOLUME 91.6 fL (80.0-94.0); MEAN PLATELET VOLUME 8.7 fL (7.4-11.4); MONOCYTES # (AUTO) 0.6 10^3/uL (0.0-1.0); MONOCYTES % (AUTO) 8.1 %; NEUTROPHILS # (AUTO) 5.4 10^3/uL (1.5-6.6); NEUTROPHILS % (AUTO) 76.1 %; PLT - PLATELET COUNT 245 10^3/uL (130-450); RED BLOOD COUNT 3.33 10^6/uL (4.70-6.10); RED CELL DISTRIBUTION WIDTH 11.9 % (12.0-15.0); WHITE BLOOD COUNT 7.1 x10^3/uL (4.8-10.8)
[2019-02-12 06:30] LABS: CREATININE 1.4 mg/dL (0.6-1.2); MAGNESIUM 1.9 mg/dL (1.7-2.8)
--- NOTE | 2019-02-12 08:43 | CONSULTATION NOTE ---
Referring Provider Name of Referring Provider:: Dr. Carty Consult Date: 02/12/19 Chief Complaint - Chief Complaint Chief Complaint: GI bleed History of Present Illness - Admitted From Admitted From:: ER - History Obtained From Records Reviewed: yes History obtained from: records, pt's Exam Limitations: pt non communicative - History of Present Illness HPI Comment/Other: 83 yo male with progressively worsening dementia and hx of vague abdominal sx for the past year or so, s/p lap kailee in Mar 2018 without improvement, who was noted yesterday to be excessively belching and appeared to be uncomfortable, followed by a single episode of coffee ground hematemesis, which prompted him to come to the ER yesterday afternoon and be admitted. His bm's have been normal. No hx of PUD, alcoholism, or recent wt loss. No melena or hematochezia. Neg colonoscopy in the past. Neg FH GI tumors. No prior UGI evaluations. NSAID use: daily 81 mg aspirin. He is on anticoagulation therapy for atrial fibrillation with a NOAC. No prior similar episodes. No hx hepatitis or jaundice. Eval has included a H/H of 30 on admission and unchanged this am. One small brown bm since admission. He has been hemodynamically stable. History - Past Medical History Cardiovascular: reports: Hypertension, High cholesterol, Coronary artery disease, Angina, [place], Atrial fibrillation, Other Respiratory: reports: Asthma Neuro: reports: Dementia Endocrine/Autoimmune: reports: Type 2 diabetes GI: reports: None : reports: None, Renal insuffiency HEENT: reports: Chronic vision loss Psych: reports: None Musculoskeletal: reports: Osteoarthritis, Gout, Other (toe infection being treated with antibiotics currently) MRSA Hx?: No - Past Surgical History General: reports: Cholecystectomy, Appendectomy, Colonoscopy Cardiovascular: reports: Cardiac catheterization, Angioplasty - Family & Social History Family History Comment/Other: Neg for GI tumors Living arrangement: At home Living Situation: With spouse/s.o. Social History Notes: Pt has [facility]. - Substance History Use: Uses substance without health or social issues: NONE - POLST Patient has POLST: Yes POLST Status: DNR Meds/Allgy - Home Medications Home Medications: Ambulatory Orders Medication Instructions Recorded Confirmed Amiodarone HCl 100 mg PO DAILY 01/31/14 02/11/19 Aspirin [Aspir 81] 81 mg PO DAILY 01/31/14 02/11/19 Levothyroxine [Synthroid] 50 mcg PO QPM 01/31/14 02/11/19 Rosuvastatin Calcium [Crestor] 10 mg PO QPM 01/31/14 02/11/19 Apixaban [Eliquis] 2.5 mbq PO BID 05/20/18 02/11/19 Calcium Carbonate [Tums (Calcium 1,000 mg PO BID 02/11/19 02/11/19 Carbonate 500mg)] Carboxymethylcellulose Sodium 1 drops EACHEYE BID 02/11/19 02/11/19 [Restore Plus] cephALEXin [Cephalexin] 500 mg PO QID 02/11/19 02/11/19 - Allergies Allergies/Adverse Reactions: Allergies Allergy/AdvReac Type Severity Reaction Status Date / Time metformin Allergy Intermediate Unknown Verified 05/20/18 15:46 colchicine Allergy Unknown Verified 05/20/18 15:46 atorvastatin calcium * AdvReac Intermediate Cramps Verified 05/20/18 15:46 [From Lipitor] niacin AdvReac Intermediate Flushed Verified 05/20/18 15:46 Review of Systems - All Other Systems All Other Systems: reports: Other (unobtainable; pt is non commmunicative at present) Exam - Vital Signs Reviewed Vital Signs: Yes Vital Signs: Vital Signs x48h Temp Pulse Resp BP Pulse Ox 02/12/19 08:02 37.3 C 52 L 16 136/65 H 96 02/12/19 03:40 36.6 C 57 L 18 143/73 H 100 - Physical Exam General Appearance: positive: No acute distress, Other (pt is not awake and does not respond to verbal stimulation or gentle physical stimulation.) Eyes Bilateral: positive: No scleral icterus ENT: positive: Other (will not open his mouth) Neck: positive: Nml inspection, No JVD. negative: Lymphadenopathy (R), Lymphadenopathy (L) Respiratory: positive: Chest non-tender, No respiratory distress, Breath sounds nml Cardiovascular: positive: Irregularly irregular Abdomen: positive: Non-tender, No organomegaly, Nml bowel sounds, No distention, Other (small reducible nontender umbilical hernia; laparoscopy scars). negative: Guarding, Rebound, Hepatomegaly, Splenomegaly, Mass Skin: positive: Color nml, Warm, Dry. negative: Cyanosis Extremities: positive: No pedal edema. negative: Calf tenderness Conclusion/Plan - Diagnosis Diagnosis: UGI bleed/hematemesis. Appears to have resolved clinically at this time. DDX includes PUD, gastritis, H. pylori, GERD with erosive esophagitis, UGI neoplasm, dieulafoy lesion, doubt varices or M-W tear. Antiocoagulation may have exacerbated the bleeding. - Plan Plan: Hold anticoagulation therapy. EGD in am. PAR conf with pt's and consent obtained from her. She would like to know the etiology of the bleeding prior to making any further decisions regarding his management. This seems quire reasonable. The procedure could be done sooner if necessary, but it would be better if the anticoagulant effects of apixaban are worn off completely before proceeding with any invasive procedures. Thanks, - Lab Results Lab results reviewed: Yes Fish Bones: 02/12/19 06:04 02/12/19 06:04
[2019-02-12] MEDS: AMIODARONE 200 MG TABLET PO SCH (10:07)
[2019-02-12] MEDS: FAMOTIDINE 20 MG/2 ML VIAL IVP SCH ×2 (10:07→21:07)
[2019-02-12] MEDS: SODIUM CHLORIDE FLUSH 0.9% 10 ML SYRINGE IVP PRN ×2 (10:08→21:07)
[2019-02-12] MEDS: CARBOXYMETHYLCELLULOSE OPHTH DROPS EACHEYE SCH ×2 (10:08→21:08)
--- NOTE | 2019-02-12 17:41 | PROVIDER PROGRESS NOTE ---
Assessment/Plan - Problem List (1) Upper GI bleed Assessment/Plan: Seen by surgeon , who wants to wait another 24 hours since the last Eliquis dose, for EGD. Will allow clear liquids today. Continue empiric iv Pepcid Monitor H/H daily (2) Dementia Assessment/Plan: The will be offered help with caregivers, etc by SW (3) CKD (chronic kidney disease) Assessment/Plan: Stable elevated creat (4) Hypothyroidism Assessment/Plan: His thyroid dose was ordered to use here (5) Toe infection Assessment/Plan: He is on the iv form of his Cephalosporin while here - Current Meds Current Meds: Current Medications Generic Name Dose Route Start Last Admin Trade Name Freq PRN Reason Stop Dose Admin Amiodarone HCl 100 mg 02/12/19 09:00 02/12/19 10:07 Pacerone PO 100 mg DAILY PETER Administration Carboxymethylcellulose 1 drops 02/12/19 09:00 02/12/19 10:08 Refresh 1% Ophth Drops EACHEYE 1 drops BID PETER Administration Famotidine 20 mg 02/11/19 21:00 02/12/19 10:07 Pepcid IVP 20 mg BID PETER Administration Cefazolin Sodium 1 gm/ Sodium 100 mls @ 200 mls/hr 02/11/19 19:00 02/12/19 11:41 Chloride IV Infused Q8H PETER Infusion Dextrose/Sodium Chloride 1,000 mls @ 60 mls/hr 02/12/19 08:30 02/12/19 10:10 D5ns IV 60 mls/hr .[id number] PETER Administration Levothyroxine Sodium 50 mcg 02/11/19 21:00 02/11/19 20:52 Synthroid PO 50 mcg QPM PETER Administration Sodium Chloride 10 ml 02/11/19 15:39 02/12/19 10:08 Normal Saline Flush 0.9% IVP 10 ml PRN PRN Administration NEEDED PER PROVIDER ORDERS Sodium Chloride 10 ml 02/11/19 17:00 02/12/19 17:27 Normal Saline Flush 0.9% IVP Not Given 0100,0900,1700 PETER - Lab Result Fish Bone Diagrams: 02/12/19 06:04 02/12/19 06:04 - Additional Planning My Orders: My Active Orders 02/11/19 17:00 Sodium Chloride Flush 0.9% [Normal Saline Flush 0.9%] 10 ml IVP 0100,0900,1700 02/11/19 19:00 ceFAZolin [Ancef] 1 gm Sodium Chloride 0.9% Minibag [Normal Saline 0.9% Minibag] 100 ml IV Q8H 02/11/19 20:03 Straight Catheter Insertion [RC] ONCE 02/11/19 21:00 Famotidine [Pepcid] 20 mg IVP BID Levothyroxine [Synthroid] 50 mcg PO QPM 02/12/19 08:30 Dextrose 5%-0.9% NaCl [D5ns] 1,000 ml IV 60 mls/hr 02/12/19 09:00 Amiodarone [Pacerone] 100 mg PO DAILY Carboxymethylcellulose 1% Opht [Refresh 1% Ophth Drops] 1 drops EACHEYE BID 02/12/19 Breakfast DIET [Clear Liquid Diet] [DIET] 02/13/19 00:01 DIET [NPO except Meds at Midnight] [DIET] Subjective - Subjective Patient Reports: Resting Comfortably Nursing Reports: No Complaints, Confused Objective Vital Signs: Vital Signs - 24 hr 02/11/19 02/12/19 02/12/19 21:00 00:18 03:40 Temperature 36.7 C 36.2 C L 36.6 C Heart Rate [ 76 52 L 57 L Brachial] Respiratory 16 20 18 Rate Blood Pressure 147/68 H 149/62 H 143/73 H [Right Brachial artery] O2 Saturation 100 100 100 02/12/19 02/12/19 02/12/19 08:02 12:54 15:49 Temperature 37.3 C 37.1 C 36.6 C Heart Rate [ 52 L 52 L 53 L Brachial] Respiratory 16 16 14 Rate Blood Pressure 136/65 H 143/60 H 138/61 H [Right Brachial artery] O2 Saturation 96 97 Oxygen O2 Source Room air I&O (Last 24 Hrs): Intake and Output Totals x24h 02/10/19 02/11/19 02/12/19 23:59 23:59 23:59 Intake Total 753 1688.000 Output Total 600 425 Balance 153 1263.000 General: Alert, Other (Only oriented to self and ) HEENT: Mucous membr. moist/pink Neck: Supple Neuro: Disoriented, Non Focal Cardiovascular: Regular rate, No murmurs Respiratory: No respiratory distress Abdomen: Soft, No tenderness Extremities: No edema - Results Results: Laboratory Results WBC 7.1 x10^3/uL (4.8-10.8) 02/12/19 06:04 RBC 3.33 10^6/uL (4.70-6.10) L 02/12/19 06:04 Hgb 10.6 g/dL (14.0-18.0) L 02/12/19 06:04 Hct 30.5 % (42.0-52.0) L 02/12/19 06:04 MCV 91.6 fL (80.0-94.0) 02/12/19 06:04 MCH 31.8 pg (27.0-31.0) H 02/12/19 06:04 MCHC 34.8 g/dL (32.0-36.0) 02/12/19 06:04 RDW 11.9 % (12.0-15.0) L 02/12/19 06:04 Plt Count 245 10^3/uL (130-450) 02/12/19 06:04 MPV 8.7 fL (7.4-11.4) 02/12/19 06:04 Neut # (Auto) 5.4 10^3/uL (1.5-6.6) 02/12/19 06:04 Lymph # (Auto) 1.0 10^3/uL (1.5-3.5) L 02/12/19 06:04 [place] # (Auto) 0.6 10^3/uL (0.0-1.0) 02/12/19 06:04 Eos # (Auto) 0.1 10^3/uL (0.0-0.7) 02/12/19 06:04 Baso # (Auto) 0.0 10^3/uL (0.0-0.1) 02/12/19 06:04 Absolute Nucleated RBC 0.00 x10^3/uL 02/12/19 06:04 Nucleated RBC % 0.0 /100WBC 02/12/19 06:04 PT 13.9 secs (9.9-12.6) H 02/11/19 12:50 INR 1.2 (0.8-1.2) 02/11/19 12:50 Sodium 129 mmol/L (135-145) L 02/12/19 06:04 Potassium 3.7 mmol/L (3.5-5.0) 02/12/19 06:04 Chloride 96 mmol/L (101-111) L 02/12/19 06:04 Carbon Dioxide 24 mmol/L (21-32) 02/12/19 06:04 Anion Gap 9.0 (6-13) 02/12/19 06:04 BUN 19 mg/dL (6-20) 02/12/19 06:04 Creatinine 1.4 mg/dL (0.6-1.2) H 02/12/19 06:04 Estimated GFR (MDRD) 49 (>89) L 02/12/19 06:04 Glucose 110 mg/dL (70-100) H 02/12/19 06:04 Calcium 9.0 mg/dL (8.5-10.3) 02/12/19 06:04 Magnesium 1.9 mg/dL (1.7-2.8) 02/12/19 06:04 Total Bilirubin 0.7 mg/dL (0.2-1.0) 02/11/19 12:50 AST 17 IU/L (10-42) 02/11/19 12:50 ALT 11 IU/L (10-60) 02/11/19 12:50 Alkaline Phosphatase 53 IU/L (42-121) 02/11/19 12:50 Total Protein 6.4 g/dL (6.7-8.2) L 02/11/19 12:50 Albumin 3.6 g/dL (3.2-5.5) 02/11/19 12:50 Globulin 2.8 g/dL (2.1-4.2) 02/11/19 12:50 Albumin/Globulin Ratio 1.3 (1.0-2.2) 02/11/19 12:50 Lipase 34 U/L (22-51) 02/11/19 12:50 Blood Type A POSITIVE 02/11/19 13:00 Blood Type Recheck A POSITIVE 02/11/19 11:58 Antibody Screen NEGATIVE 02/11/19 13:00 - Procedures Procedures: Procedures CATARAC PHACOEMULS/ASPIR (04/05/14) INSERT LENS AT CATAR EXT (04/05/14)
[2019-02-12] MEDS: LEVOTHYROXINE 25 MCG TABLET PO SCH (21:07)
[2019-02-13] MEDS: SODIUM CHLORIDE FLUSH 0.9% 10 ML SYRINGE IVP SCH ×4 (01:59→23:36)
[2019-02-13] MEDS: ceFAZolin 1 GM in SODIUM CHLORIDE 0.9% MINIBAG 100 ML IV SCH ×3 (05:24→22:08)
[2019-02-13 06:59] LABS: BASOPHILS % (AUTO) 0.5 %; EOSINOPHILS # (AUTO) 0.3 10^3/uL (0.0-0.7); EOSINOPHILS % (AUTO) 4.4 %; HGB - HEMOGLOBIN 10.3 g/dL (14.0-18.0); LYMPHOCYTES # (AUTO) 1.1 10^3/uL (1.5-3.5); MEAN CORPUSCULAR HEMOGLOBIN 32.1 pg (27.0-31.0); MEAN CORPUSCULAR HGB CONC 34.2 g/dL (32.0-36.0); MEAN CORPUSCULAR VOLUME 93.8 fL (80.0-94.0); MEAN PLATELET VOLUME 8.5 fL (7.4-11.4); MONOCYTES # (AUTO) 0.5 10^3/uL (0.0-1.0); MONOCYTES % (AUTO) 8.9 %; NEUTROPHILS # (AUTO) 3.8 10^3/uL (1.5-6.6); NEUTROPHILS % (AUTO) 65.8 %; PLT - PLATELET COUNT 233 10^3/uL (130-450); RED BLOOD COUNT 3.21 10^6/uL (4.70-6.10); RED CELL DISTRIBUTION WIDTH 11.9 % (12.0-15.0); WHITE BLOOD COUNT 5.7 x10^3/uL (4.8-10.8)
[2019-02-13 07:16] LABS: CALCIUM 8.7 mg/dL (8.5-10.3); CREATININE 1.6 mg/dL (0.6-1.2)
[2019-02-13] MEDS: AMIODARONE 200 MG TABLET PO SCH (07:59)
[2019-02-13] MEDS: FAMOTIDINE 20 MG/2 ML VIAL IVP SCH ×2 (07:59→20:11)
[2019-02-13] MEDS: CARBOXYMETHYLCELLULOSE OPHTH DROPS EACHEYE SCH ×2 (08:50→20:10)
[2019-02-13] MEDS: DEXTROSE 5%-0.9% NACL 1,000 ML IV SCH ×2 (12:14→20:36)
[2019-02-13] MEDS ORDERED: LACTOBACILLUS RHAMNOSUS GG CAPSULE PO SCH (13:00)
--- NOTE | 2019-02-13 13:49 | ANESTHESIA ---
Pre-Anesthesia VS, & Labs - Diagnosis Diagnosis UGI bleed/hematemesis. Appears to have resolved clinically at this time. DDX includes PUD, gastritis, H. pylori, GERD with erosive esophagitis, UGI neoplasm, dieulafoy lesion, doubt varices or M-W tear. Antiocoagulation may have exacerbated the bleeding. - Procedure Upper GI scope Vital Signs: Temp Pulse Resp BP Pulse Ox 36.5 C 52 L 20 159/77 H 99 02/13/19 12:28 02/13/19 12:28 02/13/19 12:28 02/13/19 12:28 02/13/19 12:28 Height 5 ft 8 in Weight (kg) 76 kg Body Mass Index 25.4 - Lab Results Current Lab Results: Laboratory Tests 02/13/19 06:54: Sodium 133 L, Potassium 3.8, Chloride 99 L, Carbon Dioxide 24, Anion Gap 10.0, BUN 14, Creatinine 1.6 H, Estimated GFR (MDRD) 42 L, Glucose 104 H, Calcium 8.7 02/13/19 06:54: WBC 5.7, RBC 3.21 L, Hgb 10.3 L, Hct 30.1 L, MCV 93.8, MCH 32.1 H, MCHC 34.2, RDW 11.9 L, Plt Count 233, MPV 8.5, Neut # (Auto) 3.8, Lymph # (Auto) 1.1 L, [place] # (Auto) 0.5, Eos # (Auto) 0.3, Baso # (Auto) 0.0, Absolute Nucleated RBC 0.00, Nucleated RBC % 0.0 02/12/19 06:04: Sodium 129 L, Potassium 3.7, Chloride 96 L, Carbon Dioxide 24, Anion Gap 9.0, BUN 19, Creatinine 1.4 H, Estimated GFR (MDRD) 49 L, Glucose 110 H, Calcium 9.0, Magnesium 1.9 02/12/19 06:04: WBC 7.1, RBC 3.33 L, Hgb 10.6 L, Hct 30.5 L, MCV 91.6, MCH 31.8 H, MCHC 34.8, RDW 11.9 L, Plt Count 245, MPV 8.7, Neut # (Auto) 5.4, Lymph # (Auto) 1.0 L, [place] # (Auto) 0.6, Eos # (Auto) 0.1, Baso # (Auto) 0.0, Absolute Nucleated RBC 0.00, Nucleated RBC % 0.0 02/11/19 13:00: Blood Type A POSITIVE, Antibody Screen NEGATIVE 02/11/19 12:50: Sodium 122 L, Potassium 4.1, Chloride 87 L, Carbon Dioxide 26, Anion Gap 9.0, BUN 26 H, Creatinine 1.5 H, Estimated GFR (MDRD) 45 L, Glucose 116 H, Calcium 8.5, Total Bilirubin 0.7, AST 17, ALT 11, Alkaline Phosphatase 53, Total Protein 6.4 L, Albumin 3.6, Globulin 2.8, Albumin/Globulin Ratio 1.3, Lipase 34 02/11/19 12:50: PT 13.9 H, INR 1.2 02/11/19 12:50: WBC 7.1, RBC 3.23 L, Hgb 10.3 L, Hct 30.0 L, MCV 92.9, MCH 31.9 H, MCHC 34.3, RDW 11.5 L, Plt Count 244, MPV 8.9, Neut # (Auto) 6.0, Lymph # (Auto) 0.5 L, [place] # (Auto) 0.5, Eos # (Auto) 0.1, Baso # (Auto) 0.0, Absolute Nucleated RBC 0.00, Nucleated RBC % 0.0 02/11/19 11:58: Blood Type Recheck A POSITIVE Fish Bones: 02/13/19 06:54 02/13/19 06:54 Home Medications and Allergies Home Medications: Ambulatory Orders Calcium Carbonate [Tums (Calcium Carbonate 500mg)] 1,000 mg PO BID 02/11/19 Carboxymethylcellulose Sodium [Restore Plus] 1 drops EACHEYE BID 02/11/19 cephALEXin [Cephalexin] 500 mg PO QID 02/11/19 Active Medications Acetaminophen (Tylenol) 650 mg PO Q4HR PRN PRN Reason: Pain 1 to 4 Last Admin: 02/13/19 01:55 Dose: 650 mg Amiodarone HCl (Pacerone) 100 mg PO DAILY [facility] Last Admin: 02/13/19 07:59 Dose: 100 mg Carboxymethylcellulose (Refresh 1% Ophth Drops) 1 drops EACHEYE BID [facility] Last Admin: 02/13/19 08:50 Dose: 1 drops Famotidine (Pepcid) 20 mg IVP BID [facility] Last Admin: 02/13/19 07:59 Dose: 20 mg Dextrose/Sodium Chloride (D5ns) 1,000 mls @ 60 mls/hr IV .[id number] [facility] Last Admin: 02/13/19 12:14 Dose: 60 mls/hr Cefazolin Sodium 1 gm/ Sodium (Chloride) 100 mls @ 200 mls/hr IV Q8H [facility] Last Admin: 02/13/19 13:46 Dose: 200 mls/hr Levothyroxine Sodium (Synthroid) 50 mcg PO QPM [facility] Last Admin: 02/12/19 21:07 Dose: 50 mcg Multivitamins/Minerals (Theragran M) 1 tab PO DAILYWM [facility] Prochlorperazine Edisylate (Compazine Inj) 10 mg IVP Q6HR PRN PRN Reason: Nausea / Vomiting Sodium Chloride (Normal Saline Flush 0.9%) 10 ml IVP PRN PRN PRN Reason: NEEDED PER PROVIDER ORDERS Last Admin: 02/12/19 21:07 Dose: 10 ml Sodium Chloride (Normal Saline Flush 0.9%) 10 ml IVP 0100,0900,1700 [facility] Last Admin: 02/13/19 08:07 Dose: 10 ml Amiodarone HCl 100 mg PO DAILY 01/31/14 Aspirin [Aspir 81] 81 mg PO DAILY 01/31/14 Levothyroxine [Synthroid] 50 mcg PO QPM 01/31/14 Rosuvastatin Calcium [Crestor] 10 mg PO QPM 01/31/14 Apixaban [Eliquis] 2.5 mbq PO BID 05/20/18 Calcium Carbonate [Tums (Calcium Carbonate 500mg)] 1,000 mg PO BID 02/11/19 Carboxymethylcellulose Sodium [Restore Plus] 1 drops EACHEYE BID 02/11/19 cephALEXin [Cephalexin] 500 mg PO QID 02/11/19 Allergies/Adverse Reactions: Allergies Allergy/AdvReac Type Severity Reaction Status Date / Time metformin Allergy Intermediate Unknown Verified 05/20/18 15:46 colchicine Allergy Unknown Verified 05/20/18 15:46 atorvastatin calcium * AdvReac Intermediate Cramps Verified 05/20/18 15:46 [From Lipitor] niacin AdvReac Intermediate Flushed Verified 05/20/18 15:46 Anes History & Medical History - Anesthetic History Anesthesia Complications: reports: Other-see comment (Slow wakeup after cholecystectomy in Mar 2018) Family history of Anesthesia Complications: Denies Family history of Malignant Hyperthermia: Denies - Medical History Cardiovascular: reports: Hypertension, High cholesterol, Coronary artery disease, Angina, [place], Atrial fibrillation, Other Pulmonary: reports: Asthma Gastrointestinal: reports: None, Other (Recent N/V) Urinary: reports: None, Renal insuffiency Neuro: reports: Dementia Musculoskeletal: reports: Osteoarthritis, Gout, Other (toe infection being treated with antibiotics currently) Endocrine/Autoimmune: reports: Type 2 diabetes, HyPOthyroidism Blood Disorders: reports: Anemia Skin: reports: Other Smoking Status: Former smoker Psychosocial: reports: No issues indicated - Surgical History General: Cholecystectomy, Appendectomy, Colonoscopy Eyes Ears Nose Throat (EENT): Other Cardiothoracic: Cardiac catheterization, Angioplasty Exam General: Mild distress Dental: Dentures full Upper Mouth Opening: Greater than 4 Fingerbreadths Neck Mobility: Reduced Thyromental Distance: greater than 6 cm Cardiovascular: Regular rate Mental/Cognitive Status: Confused Cognitive Status: Dementia Plan Anesthesia Type: Total IV Consent for Procedure(s) Verified and Reviewed: Yes Code Status: Do Not Attempt Resuscitation ASA classification: 3-Severe systemic disease Is this case an emergency?: No
--- NOTE | 2019-02-13 14:39 | PROVIDER PROGRESS NOTE ---
Assessment/Plan - Problem List (1) Upper GI bleed Assessment/Plan: Clinically resolved. No sign of active bleeding. Plan: EGD today. (2) Abdominal pain Assessment/Plan: Etiology unclear; chronic. Plan: EGD today. - Current Meds Current Meds: Current Medications Generic Name Dose Route Start Last Admin Trade Name Freq PRN Reason Stop Dose Admin Acetaminophen 650 mg 02/11/19 15:39 02/13/19 01:55 Tylenol PO 650 mg Q4HR PRN Administration Pain 1 to 4 Amiodarone HCl 100 mg 02/12/19 09:00 02/13/19 07:59 Pacerone PO 100 mg DAILY PETER Administration Carboxymethylcellulose 1 drops 02/12/19 09:00 02/13/19 08:50 Refresh 1% Ophth Drops EACHEYE 1 drops BID PETER Administration Famotidine 20 mg 02/11/19 21:00 02/13/19 07:59 Pepcid IVP 20 mg BID PETER Administration Dextrose/Sodium Chloride 1,000 mls @ 60 mls/hr 02/12/19 08:30 02/13/19 12:14 D5ns IV 60 mls/hr .[id number] PETER Administration Cefazolin Sodium 1 gm/ Sodium 100 mls @ 200 mls/hr 02/13/19 06:00 02/13/19 13:46 Chloride IV 200 mls/hr Q8H PETER Administration Levothyroxine Sodium 50 mcg 02/11/19 21:00 02/12/19 21:07 Synthroid PO 50 mcg QPM PETER Administration Sodium Chloride 10 ml 02/11/19 15:39 02/12/19 21:07 Normal Saline Flush 0.9% IVP 10 ml PRN PRN Administration NEEDED PER PROVIDER ORDERS Sodium Chloride 10 ml 02/11/19 17:00 02/13/19 08:07 Normal Saline Flush 0.9% IVP 10 ml 0100,0900,1700 PETER Administration - Lab Result Lab results reviewed: Yes Fish Bone Diagrams: 02/13/19 06:54 02/13/19 06:54 - Additional Planning Condition/Complexity: Improved Plan Discussed with:: Patient, Spouse Time Spent: Less than 15 minutes Subjective - Subjective Patient Reports: Resting Comfortably, No Complaints, Abdominal Pain (chronic, poorly characterized) Nursing Reports: No Complaints Objective Vital Signs: Vital Signs - 24 hr 02/12/19 02/12/19 02/13/19 15:49 19:03 00:00 Temperature 36.6 C 36.7 C 36.3 C L Heart Rate [ 53 L 55 L 74 Brachial] Respiratory 14 14 18 Rate Blood Pressure 138/61 H 137/70 H 155/81 H [Right Brachial artery] O2 Saturation 98 100 02/13/19 02/13/19 02/13/19 03:49 07:50 07:59 Temperature 36.7 C 36.5 C Heart Rate [ 51 L 50 L 64 Brachial] Respiratory 18 18 Rate Blood Pressure 139/80 H 133/66 H [Right Brachial artery] O2 Saturation 99 98 02/13/19 12:28 Temperature 36.5 C Heart Rate [ 52 L Brachial] Respiratory 20 Rate Blood Pressure 159/77 H [Right Brachial artery] O2 Saturation 99 Oxygen O2 Source Room air I&O (Last 24 Hrs): Intake and Output Totals x24h 02/11/19 02/12/19 02/13/19 23:59 23:59 23:59 Intake Total 753 2334.000 554 Output Total 664 340 9281 Balance 153 1909.000 -696 General: Alert, Cooperative, No acute distress Abdomen: Soft, No tenderness, No hepatospenomegaly, No masses Extremities: No edema, No tenderness/swelling Comments/Notes: No vomiting since admission. Nl bm x 2 yesterday. - Results Results: Laboratory Results WBC 5.7 x10^3/uL (4.8-10.8) 02/13/19 06:54 RBC 3.21 10^6/uL (4.70-6.10) L 02/13/19 06:54 Hgb 10.3 g/dL (14.0-18.0) L 02/13/19 06:54 Hct 30.1 % (42.0-52.0) L 02/13/19 06:54 MCV 93.8 fL (80.0-94.0) 02/13/19 06:54 MCH 32.1 pg (27.0-31.0) H 02/13/19 06:54 MCHC 34.2 g/dL (32.0-36.0) 02/13/19 06:54 RDW 11.9 % (12.0-15.0) L 02/13/19 06:54 Plt Count 233 10^3/uL (130-450) 02/13/19 06:54 MPV 8.5 fL (7.4-11.4) 02/13/19 06:54 Neut # (Auto) 3.8 10^3/uL (1.5-6.6) 02/13/19 06:54 Lymph # (Auto) 1.1 10^3/uL (1.5-3.5) L 02/13/19 06:54 [place] # (Auto) 0.5 10^3/uL (0.0-1.0) 02/13/19 06:54 Eos # (Auto) 0.3 10^3/uL (0.0-0.7) 02/13/19 06:54 Baso # (Auto) 0.0 10^3/uL (0.0-0.1) 02/13/19 06:54 Absolute Nucleated RBC 0.00 x10^3/uL 02/13/19 06:54 Nucleated RBC % 0.0 /100WBC 02/13/19 06:54 PT 13.9 secs (9.9-12.6) H 02/11/19 12:50 INR 1.2 (0.8-1.2) 02/11/19 12:50 Sodium 133 mmol/L (135-145) L 02/13/19 06:54 Potassium 3.8 mmol/L (3.5-5.0) 02/13/19 06:54 Chloride 99 mmol/L (101-111) L 02/13/19 06:54 Carbon Dioxide 24 mmol/L (21-32) 02/13/19 06:54 Anion Gap 10.0 (6-13) 02/13/19 06:54 BUN 14 mg/dL (6-20) 02/13/19 06:54 Creatinine 1.6 mg/dL (0.6-1.2) H 02/13/19 06:54 Estimated GFR (MDRD) 42 (>89) L 02/13/19 06:54 Glucose 104 mg/dL (70-100) H 02/13/19 06:54 Calcium 8.7 mg/dL (8.5-10.3) 02/13/19 06:54 Magnesium 1.9 mg/dL (1.7-2.8) 02/12/19 06:04 Total Bilirubin 0.7 mg/dL (0.2-1.0) 02/11/19 12:50 AST 17 IU/L (10-42) 02/11/19 12:50 ALT 11 IU/L (10-60) 02/11/19 12:50 Alkaline Phosphatase 53 IU/L (42-121) 02/11/19 12:50 Total Protein 6.4 g/dL (6.7-8.2) L 02/11/19 12:50 Albumin 3.6 g/dL (3.2-5.5) 02/11/19 12:50 Globulin 2.8 g/dL (2.1-4.2) 02/11/19 12:50 Albumin/Globulin Ratio 1.3 (1.0-2.2) 02/11/19 12:50 Lipase 34 U/L (22-51) 02/11/19 12:50 Blood Type A POSITIVE 02/11/19 13:00 Blood Type Recheck A POSITIVE 02/11/19 11:58 Antibody Screen NEGATIVE 02/11/19 13:00 - Procedures Procedures: Procedures CATARAC PHACOEMULS/ASPIR (04/05/14) INSERT LENS AT CATAR EXT (04/05/14) ABX Reporting Has patient been on IV antibiotics over the past 48 hours?: No
[2019-02-13] MEDS ORDERED: LACTATED RINGERS 1,000 ML IV ONE (14:59)
--- NOTE | 2019-02-13 15:56 | PROCEDURE REPORT ---
Hospitalist Procedure Note - Procedure Note Procedure Note: EGD: 1. No obvious source of UGI bleeding 2. 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 3. Duodenal bulbar polyp; resected; path pending. 4. Otherwise nl EGD; biopsies of D2/D3 pending for celiac dz. See [facility] formal report for details. Rec: continue PPI therapy await path report. no contraindication to resuming anticoagulation therapy tomorrow if clinically indicated.
[2019-02-13] MEDS ORDERED: IOVERSOL 320 50 ML VIAL ONE (16:47)
[2019-02-13] MEDS ORDERED: IOVERSOL 320 100 ML VIAL IVP ONE (16:47)
--- NOTE | 2019-02-13 17:30 | PROVIDER PROGRESS NOTE ---
Assessment/Plan - Problem List (1) Upper GI bleed Assessment/Plan: The presentation had been with witnessed hematemesis and melena. His H/H has not decreased and there have been no episodes while here. HiEliquis has been off for 48 hours and today he had an EGD that showed no abnormalities, biopsies were taken. Dr. Brooks recommends continuing PPI Will resume diet Will restart Eliquis tomorrow Probable discharge tomorrow (2) Abdominal pain Assessment/Plan: Dr. Brooks reported that the had told him that the patient gets intermittent chest abdominal pain of unknown etiology. Here there were no such c/o, but he was on a clear liquid diet, awaiting the EGD Will advance diet and watch for pain complaints Will obtain a CT of the abdomen/pelvis with contrast to evaluate for tumor or other abnormality, increase hydration rate due to getting contrast (3) Dementia Assessment/Plan: The is admittedly exhausted from being his caregiver. SW met with her for providing contacts for help, etc. The patient has no behavior problems, is pleasant, follows cues, walks, feeds himself. (4) CKD (chronic kidney disease) Assessment/Plan: Stable mildly creat, slightly better from being in gentle hydration while awaiting EGD (5) Hypothyroidism Assessment/Plan: He remains on home therapy (6) Toe infection Assessment/Plan: He was changed to iv form of antibiotics, while NPO (7) History of atrial fibrillation Assessment/Plan: The gave his Hx, and did not state Afib per se, but with his home meds of Amiodarone and Eliquis, it was assumed he was in Afib. During [facility] admission, he has been in stable sinus rhythm with rates of 50-60's at rest. Eliquis will be restarted tomorrow. - Current Meds Current Meds: Current Medications Generic Name Dose Route Start Last Admin Trade Name Freq PRN Reason Stop Dose Admin Acetaminophen 650 mg 02/11/19 15:39 02/13/19 01:55 Tylenol PO 650 mg Q4HR PRN Administration Pain 1 to 4 Amiodarone HCl 100 mg 02/12/19 09:00 02/13/19 07:59 Pacerone PO 100 mg DAILY PETER Administration Carboxymethylcellulose 1 drops 02/12/19 09:00 02/13/19 08:50 Refresh 1% Ophth Drops EACHEYE 1 drops BID PETER Administration Famotidine 20 mg 02/11/19 21:00 02/13/19 07:59 Pepcid IVP 20 mg BID PETER Administration Dextrose/Sodium Chloride 1,000 mls @ 60 mls/hr 02/12/19 08:30 02/13/19 12:14 D5ns IV 60 mls/hr .[id number] PETER Administration Cefazolin Sodium 1 gm/ Sodium 100 mls @ 200 mls/hr 02/13/19 06:00 02/13/19 14:38 Chloride IV Infused Q8H PETER Infusion Levothyroxine Sodium 50 mcg 02/11/19 21:00 02/12/19 21:07 Synthroid PO 50 mcg QPM PETER Administration Sodium Chloride 10 ml 02/11/19 15:39 02/12/19 21:07 Normal Saline Flush 0.9% IVP 10 ml PRN PRN Administration NEEDED PER PROVIDER ORDERS Sodium Chloride 10 ml 02/11/19 17:00 02/13/19 08:07 Normal Saline Flush 0.9% IVP 10 ml 0100,0900,1700 PETER Administration - Lab Result Fish Bone Diagrams: 02/13/19 06:54 02/13/19 06:54 - Additional Planning My Orders: My Active Orders 02/13/19 06:00 ceFAZolin [Ancef] 1 gm Sodium Chloride 0.9% Minibag [Normal Saline 0.9% Minibag] 100 ml IV Q8H 02/13/19 14:17 Straight Catheter Insertion [RC] ONCE 02/13/19 16:00 Multivitamin W/Minerals [Theragran M] 1 tab PO DAILYWM 02/13/19 16:31 ABDOMEN/PELVIS W [CT] Routine Subjective - Subjective Patient Reports: Resting Comfortably Nursing Reports: Other (S/P EGD, is sleeping from procedural sedation) Objective Vital Signs: Vital Signs - 24 hr 02/12/19 02/13/19 02/13/19 19:03 00:00 03:49 Temperature 36.7 C 36.3 C L 36.7 C Heart Rate Heart Rate [ 55 L 74 51 L Brachial] Respiratory 14 18 18 Rate Blood Pressure Blood Pressure 137/70 H 155/81 H 139/80 H [Right Brachial artery] O2 Saturation 98 100 99 1102/13/19 02/13/19 07:50 07:59 12:28 Temperature 36.5 C 36.5 C Heart Rate Heart Rate [ 50 L 64 52 L Brachial] Respiratory 18 20 Rate Blood Pressure Blood Pressure 133/66 H 159/77 H [Right Brachial artery] O2 Saturation 98 99 02/13/19 02/13/19 02/13/19 15:20 15:25 15:30 Temperature 36.9 C 36.8 C 36.8 C Heart Rate 52 L 50 L 53 L Heart Rate [ Brachial] Respiratory 16 17 16 Rate Blood Pressure 111/52 L 124/49 L 141/54 H Blood Pressure [Right Brachial artery] O2 Saturation 100 100 100 02/13/19 02/13/19 02/13/19 15:35 15:40 15:50 Temperature 36.9 C 36.3 C L Heart Rate 51 L 53 L Heart Rate [ 49 L Brachial] Respiratory 15 14 14 Rate Blood Pressure 123/54 L 134/62 H Blood Pressure 132/51 H [Right Brachial artery] O2 Saturation 100 100 100 02/13/19 16:16 Temperature 36.4 C L Heart Rate Heart Rate [ 50 L Brachial] Respiratory 16 Rate Blood Pressure Blood Pressure 134/89 H [Right Brachial artery] O2 Saturation 100 Oxygen O2 Source Room air I&O (Last 24 Hrs): Intake and Output Totals x24h 02/11/19 02/12/19 02/13/19 23:59 23:59 23:59 Intake Total 753 2334.000 654 Output Total 477 445 7299 Balance 153 1909.000 -2596 General: Other (Lethargic) HEENT: Mucous membr. moist/pink Neck: Supple Neuro: Disoriented, Other (Currently sleeping) Cardiovascular: No murmurs Respiratory: No respiratory distress Abdomen: Normal bowel sounds, Soft, No tenderness Extremities: No edema - Results Results: Laboratory Results WBC 5.7 x10^3/uL (4.8-10.8) 02/13/19 06:54 RBC 3.21 10^6/uL (4.70-6.10) L 02/13/19 06:54 Hgb 10.3 g/dL (14.0-18.0) L 02/13/19 06:54 Hct 30.1 % (42.0-52.0) L 02/13/19 06:54 MCV 93.8 fL (80.0-94.0) 02/13/19 06:54 MCH 32.1 pg (27.0-31.0) H 02/13/19 06:54 MCHC 34.2 g/dL (32.0-36.0) 02/13/19 06:54 RDW 11.9 % (12.0-15.0) L 02/13/19 06:54 Plt Count 233 10^3/uL (130-450) 02/13/19 06:54 MPV 8.5 fL (7.4-11.4) 02/13/19 06:54 Neut # (Auto) 3.8 10^3/uL (1.5-6.6) 02/13/19 06:54 Lymph # (Auto) 1.1 10^3/uL (1.5-3.5) L 02/13/19 06:54 [place] # (Auto) 0.5 10^3/uL (0.0-1.0) 02/13/19 06:54 Eos # (Auto) 0.3 10^3/uL (0.0-0.7) 02/13/19 06:54 Baso # (Auto) 0.0 10^3/uL (0.0-0.1) 02/13/19 06:54 Absolute Nucleated RBC 0.00 x10^3/uL 02/13/19 06:54 Nucleated RBC % 0.0 /100WBC 02/13/19 06:54 PT 13.9 secs (9.9-12.6) H 02/11/19 12:50 INR 1.2 (0.8-1.2) 02/11/19 12:50 Sodium 133 mmol/L (135-145) L 02/13/19 06:54 Potassium 3.8 mmol/L (3.5-5.0) 02/13/19 06:54 Chloride 99 mmol/L (101-111) L 02/13/19 06:54 Carbon Dioxide 24 mmol/L (21-32) 02/13/19 06:54 Anion Gap 10.0 (6-13) 02/13/19 06:54 BUN 14 mg/dL (6-20) 02/13/19 06:54 Creatinine 1.6 mg/dL (0.6-1.2) H 02/13/19 06:54 Estimated GFR (MDRD) 42 (>89) L 02/13/19 06:54 Glucose 104 mg/dL (70-100) H 02/13/19 06:54 Calcium 8.7 mg/dL (8.5-10.3) 02/13/19 06:54 Magnesium 1.9 mg/dL (1.7-2.8) 02/12/19 06:04 Total Bilirubin 0.7 mg/dL (0.2-1.0) 02/11/19 12:50 AST 17 IU/L (10-42) 02/11/19 12:50 ALT 11 IU/L (10-60) 02/11/19 12:50 Alkaline Phosphatase 53 IU/L (42-121) 02/11/19 12:50 Total Protein 6.4 g/dL (6.7-8.2) L 02/11/19 12:50 Albumin 3.6 g/dL (3.2-5.5) 02/11/19 12:50 Globulin 2.8 g/dL (2.1-4.2) 02/11/19 12:50 Albumin/Globulin Ratio 1.3 (1.0-2.2) 02/11/19 12:50 Lipase 34 U/L (22-51) 02/11/19 12:50 Blood Type A POSITIVE 02/11/19 13:00 Blood Type Recheck A POSITIVE 02/11/19 11:58 Antibody Screen NEGATIVE 02/11/19 13:00 - Procedures Procedures: Procedures CATARAC PHACOEMULS/ASPIR (04/05/14) INSERT LENS AT CATAR EXT (04/05/14)
[2019-02-13] MEDS ORDERED: IOVERSOL 320 50 ML VIAL PO ONE (19:23)
[2019-02-13] MEDS: LEVOTHYROXINE 25 MCG TABLET PO SCH (20:10)
[2019-02-13] MEDS: MULTIVITAMIN W/MINERALS TABLET PO SCH (20:10)
[2019-02-13] MEDS: SODIUM CHLORIDE FLUSH 0.9% 10 ML SYRINGE IVP PRN (20:11)
--- NOTE | 2019-02-13 21:11 | CT Report ---
Reason: Abd pain Procedure Date: 02/13/2019 Accession Number: [id number] / [id number] Procedure: CT - Abdomen/Pelvis W CPT Code: Final Report FULL RESULT: EXAM: CT ABDOMEN AND PELVIS WITHOUT CONTRAST EXAM DATE: 02/13/2019 06:48 PM. CLINICAL HISTORY: Diffuse abdominal pain, dementia. COMPARISONS: ABDOMEN/PELVIS W/O 08/15/2014 4:25 PM. TECHNIQUE: Routine helical CT imaging was performed through the abdomen and pelvis. IV contrast: No contrast. Enteric contrast: No. Reconstructions: Coronal and sagittal. In accordance with CT protocol optimization, one or more of the following dose reduction techniques were utilized for this exam: automated exposure control, adjustment of mA and/or KV based on patient size, or use of iterative reconstructive technique. FINDINGS: Lack of intravenous contrast reduces exam sensitivity and specificity. Right Kidney/Ureter: There is a 3 mm right mid kidney stone versus artifact from vascular calcification (image 36 series 3). No hydronephrosis. No definite suspicious renal lesion within the confines of a noncontrast exam. No definite renal mass within the confines of a non-contrast exam. Left Kidney/Ureter: No definite left-sided kidney stone is demonstrated on this examination. Indeterminate laterally arising lesion from the left mid kidney measuring 1.5 cm (image 30 series 3). This measures 68 HU in density. No kidney stone or hydronephrosis is demonstrated. Abdominal Solid Organs: There is a 3.4 x 2.6 cm cyst arising laterally from the right lower kidney (image 30 series 3). Abdominal parenchymal organs are without significant abnormality within the confines of a noncontrast exam. Prior cholecystectomy. Bowel: No evidence of bowel obstruction. Moderate to severe sigmoid diverticulosis without evidence of acute diverticulitis at this time. Average amount of retained colonic fecal matter. Appendix: The appendix could not be identified with certainty. However, there are no secondary signs of appendicitis demonstrated at this time. Lymph Nodes: No definite pathologic lymphadenopathy. Fluid: No significant ascites. Vasculature: Normal caliber aorta. There is severe aortic and branch vessel atherosclerosis. Pelvis: No bladder stones. Visualized pelvic organs are without significant abnormality within the confines of a noncontrast exam. Bones: No definite suspicious bony lesions demonstrated. However, bones are moderate to severely osteopenic. This reduces exam sensitivity and specificity for detection of subtle bony lesions and/or fractures. There is moderate to severe multilevel degenerative change within the spine. Lower Chest: Small bilateral effusions are present. There is no significant pulmonary consolidation demonstrated. IMPRESSION: 1. Possible 3 mm right mid kidney stone versus artifact from vascular calcification. 2. No left sided kidney stone or hydronephrosis. 3. Stable hyperdense 1.5 cm lesion arising laterally from the left mid kidney, probably a hyperdense cyst. 4. No evidence of bowel obstruction. Moderate sigmoid diverticulosis without evidence of acute diverticulitis. 5. Nonspecific small bilateral pleural effusions. RADIA
[2019-02-14] MEDS: DEXTROSE 5%-0.9% NACL 1,000 ML IV SCH (04:51)
[2019-02-14] MEDS: ceFAZolin 1 GM in SODIUM CHLORIDE 0.9% MINIBAG 100 ML IV SCH (05:39)
[2019-02-14 08:08] VITALS: BP 156/63
[2019-02-14] MEDS: AMIODARONE 200 MG TABLET PO SCH (08:42)
[2019-02-14] MEDS: FAMOTIDINE 20 MG/2 ML VIAL IVP SCH (08:43)
[2019-02-14] MEDS: CARBOXYMETHYLCELLULOSE OPHTH DROPS EACHEYE SCH (08:43)
[2019-02-14] MEDS: SODIUM CHLORIDE FLUSH 0.9% 10 ML SYRINGE IVP SCH (08:44)
[2019-02-14] MEDS: MULTIVITAMIN W/MINERALS TABLET PO SCH (08:48)
--- NOTE | 2019-02-14 10:48 | Discharge Plan ---
Discharge Plan Problem Reviewed?: Yes Disposition: Home, Self Care Condition: Stable Prescriptions: Omeprazole 40 mg PO DAILY #10 capsule. Diet: Regular Activity Restrictions: Activity as Tolerated Shower Restrictions: No (fall precaution) Instruction Topics: Omeprazole tablets OTC Health Concerns: GI bleed Plan of Treatment: you had no hematemesis in hospital, your HGB is stable. you had EGD done by GI surgeon in hospital, which was unremarkable. You may followup your PCP in one week to recheck your HGB, followup home sales consultant as out-pt as needed, followup Biopsy result from EGD study. Care Goals: stabilization, and stop GI bleeding Assessment: discussed with your for care plan and image study, and followup care, and answer questions Additional Instructions or Follow Up instructions: you may followup your PCP in one week to rechck your HGB, followup home sales consultant as out-pt. Should your symptoms return or worsen, you may present ER or call 911 for help. No Smoking: If you smoke, Please STOP! Call for help. Follow-up with: Helene Carmichael ARNP [Primary Care Provider] -
--- NOTE | 2019-02-14 11:07 | DISCHARGE SUMMARY ---
"Discharge Summary Admit Date: 02/11/19 Discharge Date: 02/14/19 Discharging Provider: PINK Primary Care Provider: Helene Cash Condition at Discharge: Stable Discharge Disposition: 01 Home, Self Care Discharge Facility Name: home - DIAGNOSES Admission Diagnoses: (1) Upper GI bleed (2) Dementia (3) CKD (chronic kidney disease) (4) Hypothyroidism (5) Toe infection Discharge Diagnoses with Status of Each Condition: (1) Upper GI bleed stable.pt had no more hematemesis in hospital. pt had EGD done at hospital which was unremarkable per surgeon's report. pt's HGB is stable. pt is prescribed PPI, pt can resume his eliquis per surgeon's recommendation, advise pt followup PCP, and recheck HGB, and GI doctor as out-pt (2) Abdominal pain resolved. CT of abdomen is unremarkable. I discussed the CT result with pt's and answered her questions. (3) Dementia stable (4) CKD (chronic kidney disease) stable (5) Hypothyroidism stable (6) Toe infection stable (7) History of atrial fibrillation stable, resume home meds. - HPI History of Present Illness: 83-year-old gentleman with significant dementia and afib with anticoagulated on Eliquis complain of upper GI bleed with hematemsis once at home. - CONSULTS | PROCEDURES Consultations: Dr. Arvin Brooks Procedures: EGD - HOSPITAL COURSE Hospital Course: (1) Upper GI bleed stable.pt had no more hematemesis in hospital. pt had EGD done at hospital which was unremarkable per surgeon's report. pt's HGB is stable. pt is prescribed PPI, pt can resume his eliquis per surgeon's recommendation, advise pt followup PCP, and recheck HGB, and GI doctor as out-pt (2) Abdominal pain resolved. CT of abdomen is unremarkable. I discussed the CT result with pt's and answered her questions. (3) Dementia stable (4) CKD (chronic kidney disease) stable (5) Hypothyroidism stable (6) Toe infection stable (7) History of atrial fibrillation stable, resume home meds. - ALLERGIES Allergies/Adverse Reactions: Allergies Allergy/AdvReac Type Severity Reaction Status Date / Time metformin Allergy Intermediate Unknown Verified 05/20/18 15:46 colchicine Allergy Unknown Verified 05/20/18 15:46 atorvastatin calcium * AdvReac Intermediate Cramps Verified 05/20/18 15:46 [From Lipitor] niacin AdvReac Intermediate Flushed Verified 05/20/18 15:46 - MEDICATIONS Home Medications: Ambulatory Orders Medication Instructions Recorded Confirmed Amiodarone HCl 100 mg PO DAILY 01/31/14 02/11/19 Aspirin [Aspir 81] 81 mg PO DAILY 01/31/14 02/11/19 Levothyroxine [Synthroid] 50 mcg PO DAILY 01/31/14 02/13/19 Rosuvastatin Calcium [Crestor] 10 mg PO QPM 01/31/14 02/11/19 Apixaban [Eliquis] 2.5 mbq PO BID 05/20/18 02/11/19 Calcium Carbonate [Tums (Calcium 1,000 mg PO BID 02/11/19 02/11/19 Carbonate 500mg)] Carboxymethylcellulose Sodium 1 drops EACHEYE BID 02/11/19 02/11/19 [Restore Plus] cephALEXin [Cephalexin] 500 mg PO QID 02/11/19 02/11/19 Omeprazole 40 mg PO DAILY #10 capsule. 02/14/19 - PHYSICAL EXAM AT DISCHARGE General Appearance: positive: No acute distress, Alert. negative: Lethargic Eyes Bilateral: positive: Normal inspection, PERRL, EOMI, No lid inflammation ENT: positive: ENT inspection nml, Pharynx nml, No signs of dehydration. negative: Purulent nasal drainage Neck: positive: Nml inspection, Thyroid nml, No JVD, Trachea midline. negative: Thyromegaly, Lymphadenopathy (R), Lymphadenopathy (L), Stiff neck, Tracheal deviation Respiratory: positive: Chest non-tender, No respiratory distress, Breath sounds nml. negative: Wheezes, Rales, Rhonchi Cardiovascular: positive: Regular rate & rhythm, No murmur, No gallop. negative: Irregularly irregular, Extrasystoles, Tachycardia, Bradycardia, JVD present, Systolic murmur, Diastolic murmur Peripheral Pulses: positive: 2+ Abdomen: positive: Non-tender, No organomegaly, Nml bowel sounds, No distention. negative: Tenderness, Guarding, Rebound Back: positive: Nml inspection. negative: CVA tenderness (R), CVA tenderness ( L) Skin: positive: Color nml, No rash, Warm, Dry. negative: Cyanosis, Diaphoresis, Pallor Extremities: positive: Non-tender, Full ROM, Nml appearance. negative: Calf tenderness, Trey's sign/cords Neurologic/Psychiatric: positive: Motor nml, Sensation nml, Mood/affect nml. negative: Weakness, Sensory loss, Facial droop, Slurred/abnml speech, Depressed mood/affect - LABS Result Diagrams: 02/13/19 06:54 02/13/19 06:54 - FOLLOW UP Follow Up: you had no hematemesis in hospital, your HGB is stable. you had EGD done by GI surgeon in hospital, which was unremarkable. You may followup your PCP in one week to recheck your HGB, followup remanufacturing technician as out-pt as needed, followup Biopsy result from EGD study. you may followup your PCP in one week to rechck your HGB, followup remanufacturing technician as out-pt. Should your symptoms return or worsen, you may present ER or call 911 for help. - TIME SPENT Time Spent in Discharge (Minutes): 50"
== END 2019-02-14 11:50 | disposition home or self-care (01) | DRG 378 ==
LOC: EDUNIT# → ED 12:13 → MS2 13:30
PROVIDERS: ADMIT Internal Medicine; ATTEND Nurse Practitioner Gerontology
PROC: 0DB38ZX Excision of Lower Esophagus, Via Natural or Artificial Opening Endoscopic, Diagnostic (ICD-10-PCS; 2019-02-13)
PROC: 0DB98ZX Excision of Duodenum, Via Natural or Artificial Opening Endoscopic, Diagnostic (ICD-10-PCS; principal; 2019-02-13 13:00)
DX: K92.2 Gastrointestinal hemorrhage, unspecified (principal); K92.0 Hematemesis; E87.1 Hypo-osmolality and hyponatremia; I10 Essential (primary) hypertension; K92.1 Melena; K21.0 Gastro-esophageal reflux disease with esophagitis; K31.7 Polyp of stomach and duodenum; R10.9 Unspecified abdominal pain; E11.9 Type 2 diabetes mellitus without complications; F03.90 Unspecified dementia, unspecified severity, without behavioral disturbance, psychotic disturbance, mood disturbance, and anxiety; M19.90 Unspecified osteoarthritis, unspecified site; M10.9 Gout, unspecified; Z98.61 Coronary angioplasty status; I48.91 Unspecified atrial fibrillation; I12.9 Hypertensive chronic kidney disease with stage 1 through stage 4 chronic kidney disease, or unspecified chronic kidney disease; E11.22 Type 2 diabetes mellitus with diabetic chronic kidney disease; N18.9 Chronic kidney disease, unspecified; E03.9 Hypothyroidism, unspecified; L08.9 Local infection of the skin and subcutaneous tissue, unspecified; I25.119 Atherosclerotic heart disease of native coronary artery with unspecified angina pectoris; E78.00 Pure hypercholesterolemia, unspecified; J45.909 Unspecified asthma, uncomplicated; H54.7 Unspecified visual loss; Z66 Do not resuscitate; Z79.01 Long term (current) use of anticoagulants; Z79.82 Long term (current) use of aspirin; I25.2 Old myocardial infarction
CPT/HCPCS: 36415; 74177; 80048; 80053; 82272; 83690; 83735; 85025; 85610; 86850; 86900; 86901; 93005; 96374; 99281; 99285; A9270; J7120

== ENCOUNTER 2019-02-28 05:36 | Outpatient (CLI) | payer MEDICARE, OTHER | END 2019-02-28 05:37 | disposition critical access hospital (66) | LOC: EMS 05:36 | PROVIDERS: ATTEND Surgery | DX: R46.89 Other symptoms and signs involving appearance and behavior (principal) | CPT/HCPCS: A0425; A0429 ==

== ENCOUNTER 2019-02-28 05:56 | Emergency (ER) | payer MEDICARE, OTHER ==
--- NOTE | 2019-02-28 06:04 | ED Physician Documentation ---
History of Present Illness - Stated complaint Stated Complaint: CRYING - Chief complaint Chief Complaint: General - Additonal information Additional information: This is an 83-year-old male with a history of advanced Alzheimer's, HTN, atrial fibrillation, who presents via EMS for crying. Patient's woke up this morning and patient was crying next to her, he continued sobbing despite her efforts to console him, and she did know what to do so she called an ambulance. When he was loaded up in the ambulance he stopped crying, And he has denied complaints. Sounds like he was confused when EMS arrived, but this is difficult to ascertain because his baseline mental status is quite poor. Now his mental status now appears to be a near baseline according to reports from his . He has no complaints. He does not know why he is here in the hospital. He has a POLST form that states that he is comfort measures only, DNR/DNI, goals of care are comfort and to allow a natural . His has not noticed any other episodes like this. Review of Systems Unable to obtain: Dementia PD PAST MEDICAL HISTORY - Past Medical History Cardiovascular: Hypertension, High cholesterol, Coronary artery disease, Angina, [place], Atrial fibrillation, Other Respiratory: Asthma Neuro: Dementia Endocrine/Autoimmune: Type 2 diabetes, HyPOthyroidism GI: None, Other (Recent N/V) : None, Renal insuffiency HEENT: Chronic vision loss Psych: None Musculoskeletal: Osteoarthritis, Gout, Other (toe infection being treated with antibiotics currently) Derm: Other - Past Surgical History Past Surgical History: Yes General: Cholecystectomy, Appendectomy, Colonoscopy Cardiovascular: Cardiac catheterization, Angioplasty HEENT: Other - Present Medications Home Medications: Ambulatory Orders Medication Instructions Recorded Confirmed Amiodarone HCl 100 mg PO DAILY 01/31/14 02/11/19 Aspirin [Aspir 81] 81 mg PO DAILY 01/31/14 02/11/19 Levothyroxine [Synthroid] 50 mcg PO DAILY 01/31/14 02/13/19 Rosuvastatin Calcium [Crestor] 10 mg PO QPM 01/31/14 02/11/19 Apixaban [Eliquis] 2.5 mbq PO BID 05/20/18 02/11/19 Calcium Carbonate [Tums (Calcium 1,000 mg PO BID 02/11/19 02/11/19 Carbonate 500mg)] Carboxymethylcellulose Sodium 1 drops EACHEYE BID 02/11/19 02/11/19 [Restore Plus] cephALEXin [Cephalexin] 500 mg PO QID 02/11/19 02/11/19 Omeprazole 40 mg PO DAILY #10 capsule. 02/14/19 - Allergies Allergies/Adverse Reactions: Allergies Allergy/AdvReac Type Severity Reaction Status Date / Time metformin Allergy Intermediate Unknown Verified 05/20/18 15:46 colchicine Allergy Unknown Verified 05/20/18 15:46 atorvastatin calcium * AdvReac Intermediate Cramps Verified 05/20/18 15:46 [From Lipitor] niacin AdvReac Intermediate Flushed Verified 05/20/18 15:46 - Social History Does the pt smoke?: No Smoking Status: Former smoker Does the pt drink ETOH?: No Does the pt have substance abuse?: No - Immunizations Immunizations are current?: Yes Immunizations: TDAP current <10years - POLST Patient has POLST: Yes POLST Status: DNR PD ED PE NORMAL - Vitals Vital signs reviewed: Yes - General General: No acute distress - HEENT HEENT: No: Atraumatic - Neck Neck: No: Supple, no meningeal sign - Cardiac Cardiac: Other (Irregularly irregular rhythm, heart rate 60 [place] exam) - Respiratory Respiratory: No respiratory distress, Clear bilaterally - Abdomen Abdomen: Non tender, Non distended - Derm Derm: No rash - Extremities Extremities: No deformity - Neuro Neuro: Other (Alert, oriented to self and general place, unable to clearly describe event or date. Moving all extremities, no focal deficits) Results - Vitals Vitals: Oxygen O2 Source Room air - Labs Labs: Laboratory Tests 02/28/19 08:00 Urine Color YELLOW Urine Clarity CLEAR Urine pH 6.5 Ur Specific [place] <=1.005 Urine Protein NEGATIVE Urine Glucose (UA) NEGATIVE Urine Ketones NEGATIVE Urine Occult Blood NEGATIVE Urine Nitrite NEGATIVE Urine Bilirubin NEGATIVE Urine Urobilinogen 0.2 (NORMAL) Ur Leukocyte Esterase NEGATIVE Ur Microscopic Review NOT INDICATED Urine Culture Comments NOT INDICATED PD MEDICAL DECISION MAKING - ED course Complexity details: considered differential (UTI, dementia, thyroid disturbance, depression) ED course: On arrival patient is well-appearing smiling, he has no complaints. His mental status appears to be at his baseline. I spoke to patient's , who confirms that this morning he was crying/wailing, and she could not figure out why, so she called EMS. He did not seem to be in pain or have any focal complaints. She confirms that he is comfort measures only on his POLST, but she would like a urine test done to see if there is any obvious or reversible reason for him to have this episode. Acute intracranial pathology is unlikely given he is now at his baseline, and he had no symptoms to suggest cardiac or abdominal pathology, his lungs are clear and abdomen completely non-tender. A limited work up appears appropriate based on his directives as well as the fact that he is at his baseline. UA shows no signs of infection. He was observed in the ED for several hours with no further issues. I discussed diagnostic uncertainty, return precautions, and PCP follow up with pt's , who is in agreement. Pt was discharged home in her care. Departure - Departure Disposition: 01 Home, Self Care Clinical Impression: Crying for unknown reason Condition: Good Follow-Up: Helene Carmichael ARNP [Primary Care Provider] - Within 1 week Comments: Jorge was seen today because he had some crying this morning, by the time he arrived here it had stopped, and he appears to be back to his baseline self. His urine test shows no signs of infection. If he has worsening behavioral changes or other concerning symptoms that you would like evaluated, you may bring him back to the emergency department. Please follow-up with his primary care provider. Discharge Date/Time: 02/28/19 08:45
[2019-02-28 08:18] LABS: BILIRUBIN,URINE NEGATIVE (NEGATIVE); GLUCOSE, URINE (UA) NEGATIVE (NEGATIVE); KETONES,URINE (UA) NEGATIVE (NEGATIVE); LEUKOCYTE ESTERASE, URINE NEGATIVE (NEGATIVE); NITRITE,URINE NEGATIVE (NEGATIVE); OCCULT BLOOD,URINE NEGATIVE (NEGATIVE); PH,URINE 6.5 PH (5.0-7.5); PROTEIN,URINE NEGATIVE (NEGATIVE); UROBILINOGEN,URINE 0.2 (NORMAL) E.U./dL (NORMAL)
[2019-02-28 08:20] LABS: CLARITY,URINE CLEAR (CLEAR)
[2019-02-28 08:32] VITALS: BP 152/101
== END 2019-02-28 08:45 | disposition home or self-care (01) ==
LOC: EDUNIT# → ED 05:56
DX: G30.9 Alzheimer's disease, unspecified (principal); F02.81 Dementia in other diseases classified elsewhere, unspecified severity, with behavioral disturbance; I10 Essential (primary) hypertension; E11.9 Type 2 diabetes mellitus without complications; I48.91 Unspecified atrial fibrillation; Z79.01 Long term (current) use of anticoagulants; Z79.82 Long term (current) use of aspirin; Z87.891 Personal history of nicotine dependence; Z66 Do not resuscitate
CPT/HCPCS: 51701; 81001; 81003; 87086; 99281; 99283